=== PATIENT | female | born 1970 | race Caucasian/White ===

== ENCOUNTER 2017-09-28 06:48 | Inpatient (IN) | payer OTHER ==
[2017-09-28] VITALS (43 sets, daily range): BP systolic 93–173; BP diastolic 59–118; PULSE 73–113; RESP 15–41; Ht 154.9 cm; Wt 102.0 kg
[~2017-09-28] VITALS: Ht 154.9 cm; Wt 102.0 kg
[2017-09-28] MEDS ORDERED: ASPIRIN 81 MG TAB PO STA (06:51)
[2017-09-28] MEDS ORDERED: ENALAPRILAT 1.25 MG INJ IV STA (06:51)
[2017-09-28] MEDS ORDERED: HEPARIN 25000 UNITS/250 ML 250 ML IV STA (06:51)
[2017-09-28] MEDS ORDERED: HEPARIN 1000 UNITS/ML 10 ML INJ IV STA ×2 (06:51→07:02)
[2017-09-28] MEDS ORDERED: ASPIRIN 81 MG TAB ONE (07:00)
[2017-09-28] MEDS ORDERED: AMIODARONE 150 MG INJ ONE (07:00)
[2017-09-28] MEDS ORDERED: ALPRAZOLAM 0.25 MG TAB PO ONE (07:00)
[2017-09-28] MEDS ORDERED: NITROGLYCERIN (SL) 0.4 MG TAB ONE (07:00)
[2017-09-28] MEDS ORDERED: AMIODARONE 900 MG INJ ONE (07:00)
[2017-09-28] MEDS: NITROGLYCERIN (SL) 0.4 MG TAB SL PRN ×2 (07:00→07:09)
[2017-09-28] MEDS ORDERED: HEPARIN 5,000 UNIT/0.5 ML VIAL ONE (07:00)
[2017-09-28] MEDS ORDERED: TICAGRELOR 90 MG TABLET PO ONE (07:00)
[2017-09-28] MEDS ORDERED: LIDOCAINE 100 MG SYRINGE ONE (07:00)
[2017-09-28] MEDS ORDERED: MAGNESIUM SULFATE 1 GM/100 ML D5W IVPB ONE (07:00)
[2017-09-28] MEDS ORDERED: FER325 PO (07:03)
[2017-09-28 07:04] LABS: ABNORMAL IP MESSAGE 1; BASOPHILS % 0.2 % (0.0-2.0); EOSINOPHILS # 0.3 10^3/ul (0.0-0.5); EOSINOPHILS % 2.2 % (0.0-7.0); HEMATOCRIT 35.8 % (37.0-47.0); HEMOGLOBIN 10.5 g/dl (12.0-16.0); LYMPHOCYTES # 2.1 10^3/ul (0.8-2.9); LYMPHOCYTES % 13.9 % (15.0-51.0); MEAN CORPUSCULAR HEMOGLOBIN 21.8 pg (29.0-33.0); MEAN CORPUSCULAR HGB CONC 29.3 g/dl (32.0-37.0); MEAN CORPUSCULAR VOLUME 74.4 fl (82.0-101.0); MEAN PLATELET VOLUME 9.7 fl (7.4-10.4); MONOCYTE # 0.5 10^3/ul (0.3-0.9); MONOCYTES % 3.1 % (0.0-11.0); NEUTROPHILS % 80.2 % (39.0-77.0); PLATELET COUNT 480 10^3/UL (140-415); RED BLOOD COUNT 4.81 10^6/ul (4.20-5.40); RED CELL DISTRIBUTION WIDTH 29.2 % (11.5-14.5); WHITE BLOOD COUNT 14.9 10^3/ul (4.8-10.8)
[2017-09-28 07:05] LABS: POSITIVE DIFF @See below
--- NOTE | 2017-09-28 07:13 | RADRPT ---
PROCEDURE: XR Chest. CLINICAL INDICATION: Chest pain and myocardial infarct TECHNIQUE: AP Portable chest. COMPARISON: None available FINDINGS: Multiple EKG leads is superimposed over the chest wall. The soft tissues and osseous structures are remarkable for mild thoracic spondylosis. No focal infiltrates, masses or effusions are present. Mil d cardiomegaly is present with vascular calcifications of the thoracic aorta. No pneumothorax is pre sent. IMPRESSION: 1. No radiographic evidence for acute cardiopulmonary disease 2. Mild cardiomegaly and atherosclerotic vascular disease 3. Mild thoracic spondylosis RPTAT: HDC .Trang Bustos MD, MD Date Time Electronically viewed and signed by .Trang Bustos MD, on 09/28/2017 07:12 .C/
[2017-09-28] MEDS ORDERED: IODIXANOL LOCM 100 ML BTL ONE ×3 (07:17→13:07)
[2017-09-28] MEDS ORDERED: LIDOCAINE 1% (MDV) 20 ML INJ ONE ×2 (07:17→11:29)
[2017-09-28] MEDS ORDERED: HEPARIN 1000 UNITS/ML 10 ML INJ ONE (07:17)
[2017-09-28] MEDS ORDERED: NITROGLYCERIN (IC) 100 MCG/ML INJ ONE ×2 (07:17→12:04)
[2017-09-28] MEDS ORDERED: VERAPAMIL 5 MG INJ ONE (07:17)
[2017-09-28] MEDS ORDERED: MIDAZOLAM 1 MG/ML 2 ML INJ ONE (07:17)
[2017-09-28] MEDS ORDERED: FENTAnyl 50 MCG/ML VIAL ONE (07:17)
[2017-09-28 07:20] LABS: PROTIME 13.2 Sec (12.2-14.2)
[2017-09-28 07:23] LABS: ALBUMIN 4.5 g/dl (3.3-4.9); ALBUMIN/GLOBULIN RATIO 1.28; BILIRUBIN,INDIRECT 0.6 mg/dl (0-1.1); BILIRUBIN,TOTAL 0.6 mg/dl (0.2-1.3); CHOL/HDL RATIO 7.4 RATIO
--- NOTE | 2017-09-28 07:24 | ERD ---
ER Documentation Chief Complaint Chief Complaint pt bib RA 390 with c/o abd pain at 0200 , + STEMI in field HPI 47-year-old woman brought in by EMS from home for complaints of epigastric and chest discomfort radiating to the back beginning this morning and keeping her awake. She states she has never felt like this, she has had some nausea but no vomiting. She denies recent fevers or chills, no chest pain or shortness of breath, no headache or blurry vision. EMS performed EKG at the scene and there was suspicion for STEMI, they administered aspirin nitroglycerin with some relief and transported her here without further complications. Patient denies history of AK. ROS All systems reviewed and are negative except as per history of present illness. Medications Home Meds Reported Medications Ferrous Sulfate* (Ferrous Sulfate*) 325 Mg Tabec, 325 MG PO DAILY, TAB 09/28/17 Allergies Allergies: Coded Allergies: No Known Allergy (Unverified , 09/28/17) PMhx/Soc Anemia, obesity History of Surgery: No Hx Alcohol Use: No Hx Substance Use: No Hx Tobacco Use: No Smoking Status: Never smoker FmHx Mom had first AK at the age of 54 Family History: No diabetes Physical Exam Vitals Vital Signs Date Time Temp Pulse Resp B/P Pulse Ox O2 Delivery O2 Flow Rate FiO2 09/28/17 07:05 80 20 132/86 99 09/28/17 06:50 Nasal Cannula 2 09/28/17 06:50 98.3 76 20 116/88 99 Physical Exam GENERAL: Well-developed, well-nourished, well-hydrated, in no apparent distress , anxious HEENT: Moist mucous membranes, pink conjunctiva, no cervical spine tenderness or step-off deformities, no goiter, no jaundice or icterus, extraocular movements intact without pain. No submandibular induration, and no pharyngeal erythema NEURO: Alert and oriented 3, cranial nerves II through XII intact bilaterally, pupils equal round reactive to light, no focal deficits or facial asymmetry, sensation intact distally Strength 5/5 in upper and lower extremities bilaterally CARDIAC: Regular rate and rhythm, no murmurs rubs or gallops LUNGS: Clear bilaterally no wheezing crackles or stridor ABDOMEN: Soft nontender, no guarding, no rigidity, no rebound, no psoas sign no obturator sign. Normoactive bowel sounds SKIN: Warm and dry to touch, no abrasions, contusions, or hematomas, no lacerations, no ecchymosis, no target lesions, and without ulcers EXTREMITIES: No clubbing cyanosis or edema, calves are bilaterally symmetrical, no Homans sign, no popliteal cord sign. Distal pulses equal and bilateral PSYCH: Anxious Result Diagram: 09/28/17 1046 09/28/17 1046 Results 24 hrs Laboratory Tests Test 09/28/17 06:54 White Blood Count 14.910^3/ul Red Blood Count 4.8110^6/ul Hemoglobin 10.5g/dl Hematocrit 35.8% Mean Corpuscular Volume 74.4fl Mean Corpuscular Hemoglobin 21.8pg Mean Corpuscular Hemoglobin Concent 29.3g/dl Red Cell Distribution Width 29.2% Platelet Count 37774^3/UL Mean Platelet Volume 9.7fl Neutrophils % 80.2% Lymphocytes % 13.9% Monocytes % 3.1% Eosinophils % 2.2% Basophils % 0.2% Nucleated Red Blood Cells % 0.0/100WBC Neutrophils # 12.010^3/ul Lymphocytes # 2.110^3/ul Monocytes # 0.510^3/ul Eosinophils # 0.310^3/ul Basophils # 0.010^3/ul Nucleated Red Blood Cells # 0.010^3/ul Prothrombin Time 13.2Sec Prothrombin Time Ratio 1.0 INR International Normalized Ratio 1.00 Sodium Level 141mmol/L Potassium Level 3.9mmol/L Chloride Level 104mmol/L Carbon Dioxide Level 20mmol/L Anion Gap 21 Blood Urea Nitrogen 12mg/dl Creatinine 0.78mg/dl Glucose Level 227mg/dl Calcium Level 9.1mg/dl Total Bilirubin 0.6mg/dl Direct Bilirubin 0.00mg/dl Indirect Bilirubin 0.6mg/dl Aspartate Amino Transf (AST/SGOT) 34IU/L Alanine Aminotransferase (ALT/SGPT) 49IU/L Alkaline Phosphatase 96IU/L Troponin I 0.107ng/ml B-Type Natriuretic Peptide 40PG/ML Total Protein 8.0g/dl Albumin 4.5g/dl Globulin 3.50g/dl Albumin/Globulin Ratio 1.28 Triglycerides Level 205mg/dl Cholesterol Level 209mg/dl LDL Cholesterol, Calculated 140mg/dl HDL Cholesterol 28mg/dl Cholesterol/HDL Ratio 7.4RATIO Lipase 41U/L Hepatitis B Surface Antigen NEGATIVE Hepatitis C Antibody Pending HIV (1&2) Antibody Pending Current Medications Medications (Trade) Dose Ordered Sig/Ne Route PRN Reason Start Time Stop Time Status Last Admin Dose Admin Aspirin (Aspirin) 162 mg ONCE STAT PO 09/28/17 06:51 09/28/17 06:55 DC 09/28/17 06:51 Enalaprilat (Vasotec Iv) 1.25 mg ONCE STAT IV 09/28/17 06:51 09/28/17 06:55 DC Nitroglycerin (Nitroglycerin (Sl Tab) 0.4 Mg) 1 tab Q5M UP TO 3 DOSES PRN SL CHEST PAIN 09/28/17 07:00 09/28/17 07:00 Heparin Sodium (Porcine) 1000 unit 1,000 unit ONCE STAT IV 09/28/17 06:51 09/28/17 07:04 DC Heparin Sodium (Porcine) (Heparin 44954 Units/250 ml) 250 ml @ 0 mls/hr ONCE STAT IV 09/28/17 06:51 09/28/17 06:55 DC Ticagrelor (Brilinta) 180 mg ONCE ONCE PO 09/28/17 07:00 09/28/17 07:01 DC 09/28/17 07:00 Alprazolam (Xanax) 0.5 mg ONCE ONCE PO 09/28/17 07:00 09/28/17 07:01 DC 09/28/17 09:50 Heparin Sodium (Porcine) (Heparin (1000 Units/ml)) 5,000 unit ONCE STAT IV 09/28/17 07:02 09/28/17 07:04 DC 09/28/17 07:02 Procedures/[facility] IV line was established patient was placed on cardiac exercise physiologist rhythm strip revealed a sinus rhythm at about 80 bpm with upright P and T waves. Patient was afebrile EKG performed, read by me revealed a normal sinus rhythm at 77 bpm, normal axis , intraventricular conduction delay QRS 100 ms, inferolateral ST elevations including limb leads II, III, aVF as well as precordial leads V3 through V6. There are ST depressions in leads I, aVL, and V2. Concerning for inferior versus left circumflex occlusion. Chest X-ray 1V Interpreted by me: Soft Tissue: No acute abnormalities Bones: No acute abnormalities Mediastinum/Cardiac Silhouette/Lungs: No acute abnormalities Patient had concerning symptoms and EKG findings so was treated here with aspirin 162 mg p.o. for cardioprotective measures, nitroglycerin 0.4 mg sublingual 1, ticagrelor 180 mg p.o. 1, as well as heparin bolus and drip. Patient did not require enalapril as her blood pressure was within normal limits , although I did administer alprazolam 0.5 mg p.o. 1 for anxiety. I spoke to tax appraiser paint line production supervisor Dr. Garcia regarding the patient' s presentation, symptomatology, and EKG findings he agreed with the ED management and agreed to take the patient to the Internal Communications Specialist for emergent PCI. Cardiac critical Care: Time: 40 minutes, this was time separate from other billable procedures. Treatments/Evaluations: Close monitoring and treatment of unstable vital signs, cardiorespiratory, and neurologic status, while maintaining tight balance of fluid, respiratory, and cardiac interventions. CBC and electrolytes are normal, liver function tests are normal, and the initial troponin was negative. Patient was taken to the Internal Communications Specialist and admitted to hospitalist team, who I spoke to. Prior to transfer her vital signs were normal, oxygen saturation 98%, patient appeared comfortable. Departure Diagnosis: Primary Impression: ST elevation myocardial infarction (STEMI) Involved coronary artery: other inferior wall coronary artery Qualified Code : I21.19 - ST elevation myocardial infarction (STEMI) involving other coronary artery of inferior wall Condition: Serious RENETTA WALTER MD Sep 28, 2017 07:24
[2017-09-28 07:31] LABS: CALCIUM 9.1 mg/dl (8.4-10.2); CREATININE 0.78 mg/dl (0.44-1.00); POTASSIUM 3.9 mmol/L (3.5-5.1)
[2017-09-28 07:34] LABS: TROPONIN-I 0.107 ng/ml (0.00-0.12)
[2017-09-28] MEDS ORDERED: niCARdipine 25 MG INJ ONE ×2 (08:09→12:04)
[2017-09-28] MEDS ORDERED: SOD CHLORIDE 0.45% 1,000 ML IV SCH (08:46)
[2017-09-28] MEDS ORDERED: AL HYDROX/MG HYDROX/SIMETH 30 ML CUP PO PRN (09:00)
[2017-09-28] MEDS ORDERED: ACETAMINOPHEN 325 MG TAB PO PRN ×2 (09:00→09:30)
[2017-09-28] MEDS ORDERED: ONDANSETRON 4 MG INJ IV PRN ×2 (09:00→09:30)
--- NOTE | 2017-09-28 09:06 | OPR ---
Date/Time of Note Date/Time of Note DATE: 09/28/17 TIME: 08:49 Operative Report Procedure Date: Sep 28, [address] elevation myocardial infarction Postoperative Diagnosis Obstructive coronary artery disease Operation/Procedure Performed Left heart catheterization Right and left coronary angiogram Interpretation and supervision of right and left coronary angiogram Left ventricular pressure measurements PCI of the mid RCA with the placement of a 2.5 x 20 mm rebel bare-metal stent and then proximal to that in overlapping fashion 2.75 x 12 mm rebel bare-metal stent Right radial artery and right femoral artery approach ACLS protocol with defibrillation and CPR Conscious sedation Surgeon see signature line Assisted Living Administrator None Anesthesia Type: other (Conscious sedation) Estimated Blood Loss: minimal Transfusion none Specimen None Grafts/Implants Bare-metal stents as mentioned above Complications none Pt Condition Post Procedure: guarded Procedure Description Findings Hemodynamics Aortic pressure 147/87 Left ventricular pressure 156/11 with EDP of 24 Coronary anatomy Left main is a large caliber vessel with no significant disease Circumflex is a medium caliber vessel, in the mid vessel there is a 30% stenosis. OM 3 is a small caliber vessel with ostial 60% stenosis, OM 4 is a medium caliber vessel with ostial 50% stenosis. LAD is a medium to large caliber vessel with a proximal to mid 80% stenosis, at the bifurcation of the second medium caliber diagonal there is an 80% stenosis in the LAD and 90% ostial stenosis in the second diagonal. 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 Initially right radial access was obtained using ultrasound guidance. A 5/6 Japanese sheath was used the right radial artery. A 5 Japanese JL 3.5 diagnostic catheter was used to engage the left main and angiogram was performed. Number next switching out for a JR4 guide catheter and patient with severe spasming in the mid right arm inhibiting advancement of her catheter. At that time, patient with ventricular fibrillation and loss of consciousness. Patient was shocked at 200 J and CPR was performed. Patient came to within a few seconds. IV amiodarone bolus was given. We next which the right femoral artery access using micropuncture initially and then a 6 Japanese sheath was placed. 6 Japanese JR4 guide was used to engage the RCA which demonstrated 100% mid occlusion. Angiomax was used for anticoagulation. We next crossed the lesion with a run through wire and flow was regained. We next performed balloon angioplasty. Patient once again ventricular fibrillation requiring 2 defibrillations with 200 J. Patient regained consciousness within a few seconds. Patient was given IV lidocaine. 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 Furthermore, given the LAD stenosis and location, coronary artery bypass grafting would be the preferred option. Given the above, and with angioplasty by itself, there was recurrent recoil of the RCA, we opted to proceed with bare-metal stenting of the RCA. A 2.5 x 20 mm bare-metal stent was used in the mid to distal segment and then proximal to that in overlapping fashion, a 2.75 x 12 mm bare-metal stent was used. The stents were post dilated with the stent delivery system balloon. There was an excellent angiographic result with TAVIA-3 flow with no evidence of dissection. Patient was hemodynamically stable by and the procedure , chest pain-free, fully coherent and following commands. We next crossed into the left ventricle and pressure measurements were obtained as well as pullback. All catheters and wires removed. The left femoral artery sheath was sutured in place with plans of removal once appropriate. Recommendations Dual antiplatelet therapy for minimum of 1 month, aggressive risk factor management. Findings and plan of care discussed with the patient. Mikal Garcia DO Sep 28, 2017 09:06
--- NOTE | 2017-09-28 09:10 | CONS ---
Date/Time of Note Date/Time of Note DATE: 09/28/17 TIME: 09:07 Assessment/Plan Assessment/Plan Additional Assessment/Plan Inferior ST elevation [place] CAD status post 2 bare-metal stents to the RCA Ventricular fibrillation status post defibrillation Diabetes Hypertension Obesity -Patient status post cardiac catheterization, please refer to cath report the patient with 100% occlusion of the RCA status post 2 bare-metal stents. Patient with ventricular fibrillation during the procedure requiring defibrillation and CPR. Patient also with evidence of severe stenosis in the LAD and diagonal as well as evidence of a coronary fistula. Will continue dual antiplatelet therapy, high-dose statin, blood pressure control, beta-blockers heart rate and blood pressure permits, echocardiogram, ICU monitoring. Consultation Date/Type/Reason Admit Date/Time Type of Consultation: cv Reason for Consultation ST elevation [place] Hx of Present Illness This is a 47-year-old female with past medical history of diabetes, hypertension who presents with waxing and waning chest discomfort with activity over the past 2-3 weeks but worsening this morning with chest pain at rest. This is associated with back pain and shoulder pain. There was also shortness of breath and nausea. Patient found to have ST elevation [place] and cardiology consult was requested for this reason. Patient prior to cardiac catheterization , chest pain of 3 out of 10 in nature. Patient was given antiplatelet therapy, heparin. 12 point review of systems was performed with all pertinent positives and negatives mentioned above and all else is negative Past Medical History Medical History: diabetes, hypertension Family History Significant Family History: heart disease Social History Alcohol Use: none Smoking Status: Never smoker Exam/Review of Systems Vital Signs Vitals Vital Signs Date Time Temp Pulse Resp B/P Pulse Ox O2 Delivery O2 Flow Rate FiO2 09/28/17 07:05 80 20 132/86 99 09/28/17 06:50 Nasal Cannula 2 09/28/17 06:50 98.3 Exam In mild discomfort Constitutional: alert, obese, oriented Head: normocephalic Respiratory: other (Coarse breath sounds bilaterally, no wheezing) Cardiovascular: other (S1-S2 heard), regular rate and rhythm, systolic murmur Gastrointestinal: bowel sounds, non-tender, soft Extremities: other (No significant edema) Results Result Diagram: 09/28/17 0654 09/28/17 0654 Results 24 hrs Laboratory Tests Test 09/28/17 06:54 White Blood Count 14.9 H Red Blood Count 4.81 Hemoglobin 10.5 L Hematocrit 35.8 L Mean Corpuscular Volume 74.4 L Mean Corpuscular Hemoglobin 21.8 L Mean Corpuscular Hemoglobin Concent 29.3 L Red Cell Distribution Width 29.2 H Platelet Count 480 H Mean Platelet Volume 9.7 Neutrophils % 80.2 H Lymphocytes % 13.9 L Monocytes % 3.1 Eosinophils % 2.2 Basophils % 0.2 Nucleated Red Blood Cells % 0.0 Neutrophils # 12.0 H Lymphocytes # 2.1 Monocytes # 0.5 Eosinophils # 0.3 Basophils # 0.0 Nucleated Red Blood Cells # 0.0 Prothrombin Time 13.2 Prothrombin Time Ratio 1.0 INR International Normalized Ratio 1.00 Sodium Level 141 Potassium Level 3.9 Chloride Level 104 Carbon Dioxide Level 20 L Anion Gap 21 H Blood Urea Nitrogen 12 Creatinine 0.78 Glucose Level 227 H Calcium Level 9.1 Total Bilirubin 0.6 Direct Bilirubin 0.00 Indirect Bilirubin 0.6 Aspartate Amino Transf (AST/SGOT) 34 Alanine Aminotransferase (ALT/SGPT) 49 Alkaline Phosphatase 96 Troponin I 0.107 B-Type Natriuretic Peptide 40 Total Protein 8.0 Albumin 4.5 Globulin 3.50 H Albumin/Globulin Ratio 1.28 Triglycerides Level 205 H Cholesterol Level 209 H LDL Cholesterol, Calculated 140 HDL Cholesterol 28 L Cholesterol/HDL Ratio 7.4 Lipase 41 Procedures Procedures ECG performed in the emergency room demonstrates inferior ST elevations Mikal Garcia DO Sep 28, 2017 09:10
[2017-09-28] MEDS ORDERED: HYDROCODONE/APAP (5/325) TAB PO PRN ×2 (09:30)
[2017-09-28] MEDS ORDERED: NACL 0.9% 3 ML SYG IV SCH (09:30)
[2017-09-28] MEDS ORDERED: MAGNESIUM HYDROXIDE 30ML CUP PO PRN (09:30)
[2017-09-28] MEDS ORDERED: BISACODYL 10 MG SUPP PR PRN (09:30)
[2017-09-28] MEDS ORDERED: ACETAMINOPHEN 650 MG SUPP PR PRN (09:30)
[2017-09-28] MEDS ORDERED: DOCUSATE SODIUM 100 MG CAP PO PRN (09:30)
[2017-09-28] MEDS ORDERED: morphine 2 MG INJ IV PRN (09:30)
[2017-09-28] MEDS ORDERED: LIDOCAINE 2 GM/D5W 500 ML IV SCH (10:30)
[2017-09-28] MEDS ORDERED: PROPOFOL 100 ML ONE (10:54)
[2017-09-28 10:58] LABS: ABNORMAL IP MESSAGE 1; BASOPHILS % 0.2 % (0.0-2.0); EOSINOPHILS % 0.1 % (0.0-7.0); HEMATOCRIT 35.6 % (37.0-47.0); HEMOGLOBIN 10.4 g/dl (12.0-16.0); LYMPHOCYTES % 5.8 % (15.0-51.0); MEAN CORPUSCULAR HEMOGLOBIN 21.6 pg (29.0-33.0); MEAN CORPUSCULAR HGB CONC 29.2 g/dl (32.0-37.0); MEAN CORPUSCULAR VOLUME 73.9 fl (82.0-101.0); MEAN PLATELET VOLUME 9.7 fl (7.4-10.4); MONOCYTE # 0.4 10^3/ul (0.3-0.9); MONOCYTES % 2.3 % (0.0-11.0); NEUTROPHILS % 90.9 % (39.0-77.0); PLATELET COUNT 467 10^3/UL (140-415); RED BLOOD COUNT 4.82 10^6/ul (4.20-5.40); RED CELL DISTRIBUTION WIDTH 29.2 % (11.5-14.5); WHITE BLOOD COUNT 17.6 10^3/ul (4.8-10.8)
[2017-09-28] MEDS: PROPOFOL 100 ML IV SCH ×2 (11:00→21:48)
[2017-09-28 11:01] LABS: POSITIVE DIFF @See below
[2017-09-28 11:13] LABS: INR 1.31; PROTIME 16.4 Sec (12.2-14.2); PT RATIO 1.3
[2017-09-28 11:14] LABS: PARTIAL THROMBOPLASTIN TIME 43.4 Sec (25.0-35.0)
[2017-09-28 11:21] LABS: ALBUMIN 4.2 g/dl (3.3-4.9); ALBUMIN/GLOBULIN RATIO 1.4; BILIRUBIN,INDIRECT 0.5 mg/dl (0-1.1); BILIRUBIN,TOTAL 0.5 mg/dl (0.2-1.3); CALCIUM 8.3 mg/dl (8.4-10.2); CREATININE 0.65 mg/dl (0.44-1.00); PHOSPHORUS 3.7 mg/dl (2.5-4.9); TOTAL PROTEIN 7.2 g/dl (6.1-8.1)
[2017-09-28 11:29] LABS: CK-MB 34.1 ng/ml (0.0-2.4)
[2017-09-28 11:31] LABS: TROPONIN-I 2.91 ng/ml (0.00-0.12)
--- NOTE | 2017-09-28 11:41 | RADRPT ---
PROCEDURE: XR Chest AP portable CLINICAL INDICATION: Intubation TECHNIQUE: An AP portable radiograph of the chest was submitted. COMPARISON: Study done earlier on the same date FINDINGS: Support Hardware: The patient has been intubated and the tube tip is down the right mainstem bronchu s and should be withdrawn by approximately 6-7 cm. An NG tube has been placed with the tip distal to the gas esophageal junction. Cardiovascular: The mediastinum is displaced leftward and is largely obscured. The the peripheral pu lmonary vasculature is seen on the right appears unremarkable. Lung Mcgovern: There is atelectasis of the left lung. Pleural Spaces: No pneumothorax or pleural effusion is identified. Osseous Structures: The osseous structures appear intact. Soft Tissues: The soft tissues appear generous. IMPRESSION: 1. Endotracheal tube tip down right mainstem bronchus and should be withdrawn by approximately 6-7 cm. 2. NG tube satisfactorily position. 3. Left lung atelectasis. Physician Nestor Date Time Electronically viewed and signed by Physician Nestor on 09/28/2017 11:40 /
--- NOTE | 2017-09-28 11:43 | RADRPT ---
PROCEDURE: XR Chest AP portable CLINICAL INDICATION: Endotracheal tube pulled back TECHNIQUE: An AP portable radiograph of the chest was submitted. COMPARISON: Stated earlier on the same date FINDINGS: Support Hardware: The endotracheal tube is been satisfactorily repositioned with the tip now seen to be approximately 2 cm superior to the ara. The NG tube remains satisfactorily positioned. Cardiovascular: The cardiovascular silhouette appears unremarkable. Lung Mc[place]: There is now mild subsegmental atelectatic change involving the left lower lobe signifi cantly improved from the previous. The right lung remains clear. Pleural Spaces: No pneumothorax or pleural effusion is identified. Osseous Structures: The osseous structures appear intact. Soft Tissues: The soft tissues appear generous. IMPRESSION: 1. The endotracheal tube has been satisfactorily repositioned and the NG tube remains well placed. 2. Significant re-expansion of the left lung with mild subsegmental atelectasis involving the left lower lobe. Physician Nestor Date Time Electronically viewed and signed by Physician Nestor on 09/28/2017 11:42 /
--- NOTE | 2017-09-28 11:48 | HP ---
Date/Time of Note Date/Time of Note DATE: 09/28/17 TIME: 11:41 Assessment/Plan VTE Prophylaxis VTE Prophylaxis Intervention: SCD's Lines/Catheters IV Catheter Type (from [facility]): Saline Lock Assessment/Plan Chief Complaint/Hosp Course Assessment and plan 1. Non-ST elevated myocardial infarction (inferiorly). Patient is status post PCI with bare-metal stent placed to RCA. Continue antiplatelet therapy. Inspector [employer] following. 2. V. fib cardiac arrest. Patient did suffer from this episode status post PCI. Patient again for possible intervention medical laboratory scientist. Continue with acetaldehyde converter operator or conditions. 3. Suspect diabetes. Patient reportedly has a history of diabetes. We will follow-up on A1c. Start insulin regimen for now considering patient's elevated glucose level. 4. Suspect hypertension. Will provide with antihypertensives and adjust needed. 5. Obesity. Weight reduction to be advised 6. Dyslipidemia. To be started on statin medication Critical CARE time: Greater than 50 minutes Discussed plan of care with Dr. Anglin Problems: HPI/ROS Admit Date/Time Admit Date/Time Hx of Present Illness This is a 47-year-old female morbidly obese was brought to [facility] due to reports of chest pain. Patient reportedly has no significant past medical history. History obtained from patient's significant other as patient intubated at this time. According to report patient was in her normal state of health however this morning started to complain of abdominal pain that radiated to her back. She had associated nausea and vomiting. She did tell her significant other to call ambulance and she was brought to [facility] where she was found to have inferior myocardial infarction. She did have consultation by acetaldehyde converter operator and did undergo left heart catheterization with placement of bare-metal stent 2 to RCA. Of note during procedure she was noted to have episodes of ventricular fibrillation and was shocked. She did respond well and was brought to the ICU. While in ICU reportedly she was more alert and oriented however did fall back into ventricular fibrillation. She did have ACLS provided and was intubated. She is again being transferred to medical laboratory scientist at present for further intervention. On labs she was noted to have some leukocytosis with white count is high 17.6. She was noted with hypochromic microcytic anemia as well. Lactic acid 1.6 and troponin I is 2.9. She was also noted with an elevated blood glucose as well as elevated lipid profile. Chest x-ray showing no evidence of acute cardiopulmonary disease. We will evaluate her for the aformentiond issues. ROS 12 point review of systems obtained and entirely negative except that mentioned in the history of present illness PMH/Family/Social Past Medical History Medical History: diabetes, hypertension Social History Alcohol Use: none Smoking Status: Never smoker Drug Use: none Exam/Review of Systems Vital Signs Vitals Vital Signs Date Time Temp Pulse Resp B/P Pulse Ox O2 Delivery O2 Flow Rate FiO2 09/28/17 10:36 100 09/28/17 07:05 20 132/86 99 09/28/17 06:50 Nasal Cannula 2 09/28/17 06:50 98.3 Exam Constitutional: other (Intubated and sedated) Head: normocephalic Eyes: nl conjunctiva Neck: non-tender, supple Respiratory: diminished breath sounds Cardiovascular: irregular rhythm Gastrointestinal: other (Obese hypoactive) Musculoskeletal: No swelling Neurological: other (Intubated at this time) Labs Result Diagram: 09/28/17 1046 09/28/17 1046 Medications Medications Current Medications Aspirin (Halfprin) 81 mg DAILY PO ; Start 09/29/17 at 09:00 Ticagrelor (Brilinta) 90 mg BID PO ; Start 09/28/17 at 21:00 Metoprolol Tartrate (Lopressor) 25 mg BID PO ; Start 09/28/17 at 21:00 Acetaminophen (Tylenol Tab) 650 mg Q4H PRN PO NON-CARDIAC PAIN LEVEL 1-3; Start 09/28/17 at 09:00 Al Hydrox/Mg Hydrox/Simethicone (Mag-Al Plus) 30 ml Q4H PRN PO GASTROINTESTINAL UPSET; Start 09/28/17 at 09:00 Ondansetron HCl (Zofran Inj) 4 mg Q4H PRN IV NAUSEA AND/OR VOMITING; Start 09/28/17 at 09:00 Atorvastatin Calcium 80 mg 80 mg DAILY@21 PO ; Start 09/28/17 at 21:00 Sodium Chloride (1/2 NS) 1,000 ml @ 75 mls/hr [id number] IV Last administered on 09/28/17t 09:42; Admin Dose 75 MLS/HR; Start 09/28/17 at 08:46; Stop 09/28/17 at 22:05 Ferrous Sulfate (Ferrous Sulfate (Ec)) 325 mg DAILY PO ; Start 09/29/17 at 09:00 Ondansetron HCl (Zofran Inj) 4 mg Q6H PRN IV NAUSEA AND/OR VOMITING; Start 09/28/17 at 09:30 Acetaminophen (Tylenol Tab) 650 mg Q6H PRN PO PAIN LEVEL 1-3 OR FEVER; Start 09/28/17 at 09:30 Acetaminophen (Tylenol Supp) 650 mg Q6H PRN CA PAIN LEVEL 1-3 OR FEVER; Start 09/28/17 at 09:30 Acetaminophen/ Hydrocodone Bitart ([place] (5/325)) 1 tab Q6H PRN PO MODERATE PAIN LEVEL 4-6; Start 09/28/17 at 09:30 Acetaminophen/ Hydrocodone Bitart ([place] (5/325)) 2 tab Q6H PRN PO SEVERE PAIN LEVEL 7-10; Start 09/28/17 at 09:30 Morphine Sulfate (morphine) 2 mg Q4H PRN IV SEVERE PAIN LEVEL 7-10; Start 09/28 at 09:30 Docusate Sodium (Colace) 100 mg Q12H PRN PO CONSTIPATION; Start 09/28/17 at 09: 30 Magnesium Hydroxide (Milk Of Mag) 30 ml DAILY PRN PO CONSTIPATION; Start at 09:30 Bisacodyl (Dulcolax Supp) 10 mg DAILY PRN CA CONSTIPATION; Start 09/28/17 at 09 :30 Famotidine 20 mg 20 mg DAILY@06 IV ; Start 09/29/17 at 06:00 Lidocaine HCl/ Dextrose (Lidocaine 2 Gm/ D5W) 500 ml @ 15 mls/hr Q24H IV ; Start 09/28/17 at 10:30 BERTHA LEBLANC Sep 28, 2017 11:48
[2017-09-28] MEDS ORDERED: NORepinephrine 8MG/250 ML (PMX 250 ML ONE (12:12)
[2017-09-28] MEDS ORDERED: BIVALIRUDIN 250MG /NS 50 ML 100 ML IVPB ONE (12:27)
[2017-09-28] MEDS ORDERED: EPTIFIBATIDE 20 ML ONE (12:28)
[2017-09-28] MEDS ORDERED: EPTIFIBATIDE 100 ML IV ONE (12:28)
[2017-09-28] MEDS ORDERED: PROPOFOL 100 ML IV SCH (13:30)
[2017-09-28 13:37] LABS: AADO2 Arterial 165.4 mmHg (7.0-24.0); Arterial Base Excess -7.5 mmol/L (-3.0-3); Arterial COHb 0.2 % (0.0-3.0); Arterial Fraction of Oxyhgb 99.2 % (93.0-99.0); Arterial HCO3 17.2 mmol/L (22.0-26.0); Arterial MetHb 0.3 % (0.0-1.5); Arterial Total Hemglobin 10.6 g/dl (12.0-18.0); MODE VENT - AC
--- NOTE | 2017-09-28 13:45 | OPR ---
Date/Time of Note Date/Time of Note DATE: 09/28/17 TIME: 13:42 Operative Report Procedure Date: Sep 28, 2017 Preoperative Diagnosis Myocardial infarction Postoperative Diagnosis Myocardial infarction Acute stent thrombosis Operation/Procedure Performed Left heart catheterization Right and left coronary angiogram Interpretation and supervision of right left coronary angiogram PCI of the RCA with manual thrombectomy, intravascular ultrasound, balloon angioplasty, stenting the proximal segment of the previous stent with a rebel bare-metal 3 x 12 mm stent, distal aspect of the previous stents with a Rebel 2.5 x 12 mm bare-metal stent Right femoral artery access Right femoral vein access Surgeon see signature line Puppy Walker None Anesthesia Type: general Estimated Blood Loss: minimal Transfusion none Specimen None Grafts/Implants none Complications none Procedure Description Findings Coronary anatomy Left main is a large caliber vessel with no significant disease Circumflex is a medium caliber vessel, in the mid vessel there is a 30% stenosis. OM 3 is a small caliber vessel with ostial 60% stenosis, OM 4 is a medium caliber vessel with ostial 50% stenosis. LAD is a medium to large caliber vessel with a proximal to mid 80% stenosis, at the bifurcation of the second medium caliber diagonal there is an 80% stenosis in the LAD and 90% ostial stenosis in the second diagonal. 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 Approximate 1 hour afterwards, patient with ventricular fibrillation requiring multiple ICD shocks and medications. ECG demonstrated ST elevation [place] in inferior leads. Patient was brought to the cardiac High School Social [employer] Teacher. Patient was prepped and draped as per protocol. The previous 6 [place] sheath was exchanged out for a new sheath in the femoral artery. We next put a 5 [place] sheath in the right femoral vein. A 6 [place] JR4 guide was used to engage the RCA which demonstrated 100% occlusion at the proximal aspect of the previous stent with thrombus there. Lesion was crossed with a run through wire. Manual thrombectomy was performed 2 runs. We next performed progressive balloon angioplasty throughout the previous stents initially with compliant balloons and then up to a 2.75 noncompliant balloon. We next performed intravascular ultrasound. This demonstrated the distal aspect of the stent was in an area of plaque but this was nonobstructed. In the proximal aspect of the previous placed stent, there appeared to be either thrombus versus possible dissection. We next used a 3.0 noncompliant balloon throughout the previous placed stents. There is still an area of haziness seen in the proximal aspect of the previous stent. This was covered with a 3.0 x 12 mm bare -metal stent. This was postdilated with a 3.0 noncompliant balloon. There was no further haziness seen in the proximal aspect. Given the etiology of our patient stent thrombosis is unclear, and patient with plaque noted at the distal aspect of the previous placed stent, we opted to cover this region as well. We next used a 2.5 x 12 mm bare-metal stent in this region. This region was postdilated with a 2.75 noncompliant balloon. There was an excellent angiographic result with TAVIA-3 flow with no evidence of dissection. We next used a JL 3.5 diagnostic catheter to engage the left main to confirm there was no changes to the previous lesions. Of note, after flow was returned in the RCA after balloon angioplasty, I did contact our CT surgery colleague Dr. Moon. Given patient with lesions in the left system which will likely require CT surgery, we discussed the option of proceeding directly. Given patient acute KS and with recent arrhythmias prior to procedure, he felt the risk of proceeding with CT surgery emergently would be significant. His recommendations were to regain flow if possible via PTCA and if unsuccessful, would consider CT surgery at that time. Recommendations Continue dual antiplatelet therapy, Integrilin, ICU care Mikal Garcia DO Sep 28, 2017 13:45
[2017-09-28] MEDS ORDERED: BIVALIRUDIN 250MG /NS 50 ML 50 ML IVPB ONE (13:50)
--- NOTE | 2017-09-28 13:50 | QN ---
Documentation Comment EM consultation note for intubation status post defibrillation. Endotracheal Intubation by me: Pre assessment performed. Patient received etomidate 20 mg IV 1 for sedation and succinylcholine 100 mg IV 1 for paralysis Pre-oxygenation performed with 100% oxygen RSI: Performed w/o complication or hypoxic events. Medications as ordered. Blade: Mac 4 ET Tube: 7.5 cm Depth: 25 cm at the lip Intubation confirmed by colorimetric CO2, equal breath sounds, quiet over the stomach. Chest X-ray 1V Interpreted by me: 3 cm above the ara ET tube. Normal soft tissue, No pneumothorax. Cardiomegaly. RENETTA WALTER MD Sep 28, 2017 13:50
--- NOTE | 2017-09-28 14:08 | EN ---
Date/Time of Note Date/Time of Note DATE: 09/28/17 TIME: 14:02 Event Note Cardiology Cardiology Event Note Patient status post cardiac catheterization today. Approximately one hour afterwards, patient with ventricular fibrillation. ACLS protocol including defibrillation. Patient back to sinus rhythm. Denied chest pain but ECG demonstrated inferior ST elevations. Patient with multiple episodes of ventricular fibrillation and then ventricular tachycardia requiring defibrillation, IV amiodarone, IV lidocaine. Given the recurrent episodes, and concern for airway protection, patient was intubated by our emergency room physician and put on a propofol drip. Heart rate stabilized. Blood pressure remained stable. Initially was issues of hypoxia after intubation but this appeared secondary to the ET tube being in the right main bronchus and this was pulled back and repeat x-ray was satisfactory. Given patient with ST elevations , we opted to proceed with cardiac catheterization. Initially there was a previous patient in the [facility] which was an ST elevation [place] patient. Given our patient was unstable for transfer to another facility, and discussion with staff, the time it would take to transfer to another facility, would likely be more than the amount of time until our [facility] would be ready for patient. I did stay with the patient throughout this entire time including the transport to the [facility]. Please refer to code sheet for medications and procedures performed. Mikal Garcia DO Sep 28, 2017 14:08
[2017-09-28 14:29] LABS: ABNORMAL IP MESSAGE 1; BASOPHILS % 0.2 % (0.0-2.0); HEMATOCRIT 32.6 % (37.0-47.0); HEMOGLOBIN 9.7 g/dl (12.0-16.0); LYMPHOCYTES # 0.7 10^3/ul (0.8-2.9); MEAN CORPUSCULAR HGB CONC 29.8 g/dl (32.0-37.0); MEAN CORPUSCULAR VOLUME 73.9 fl (82.0-101.0); MEAN PLATELET VOLUME 9.9 fl (7.4-10.4); MONOCYTE # 0.6 10^3/ul (0.3-0.9); MONOCYTES % 2.6 % (0.0-11.0); NEUTROPHIL # 21.1 10^3/ul (1.6-7.5); NEUTROPHILS % 93.6 % (39.0-77.0); PLATELET COUNT 478 10^3/UL (140-415); RED BLOOD COUNT 4.41 10^6/ul (4.20-5.40); RED CELL DISTRIBUTION WIDTH 28.8 % (11.5-14.5); WHITE BLOOD COUNT 22.5 10^3/ul (4.8-10.8)
[2017-09-28] MEDS ORDERED: NORepinephrine 8MG/250 ML (PMX 250 ML IV SCH ×2 (14:30→15:00)
[2017-09-28] MEDS ORDERED: EPTIFIBATIDE 100 ML IV SCH (14:30)
[2017-09-28 14:58] LABS: CK-MB 91.1 ng/ml (0.0-2.4)
[2017-09-28 15:00] LABS: TROPONIN-I 45.5 ng/ml (0.00-0.12)
--- NOTE | 2017-09-28 15:00 | RADRPT ---
Echocardiogram Report Patient Name: LIAM LAY Gender: Female Date: 1970 Study Date: 28-Sep-2017 China Painter: Terrance Galaviz RDCS Location: 114 Height(Cm): 155 Weight(Kg): 103 BSA: 2.10 Ref. Physician: MIKAL GARCIA Quality: Adequate Procedures: Transthoracic echocardiogram with complete 2D, M-Mode, and doppler examination. Indications: mi, as/mr. 2D/M Mode Doppler Measurement Value Normal Ranges Measurement Value Normal Ranges LVIDd 2D 4.8 3.5 - 5.6 cm AV Mean PG 19.0 mmHg LVIDs 2D 2.8 2.1 - 4.1 cm AV Peak Beni 3.2 m/sec LVPWd 2D 1.1 0.6 - 1.1 cm AV Peak PG 42.0 mmHg IVSd 2D 1.1 0.6 - 1.1 cm AV VTI 56.6 cm AoR Diam 2D 2.2 2.0 - 3.7 cm LVOT Mean PG 4.0 mmHg LA Dimen 2D 2.8 2.3 - 4.0 cm LVOT Peak Beni 1.0 m/sec LVOT Peak PG 3.0 mmHg LVOT VTI 21.1 cm MV E Peak Beni 91.7 m/sec MV A Peak Beni 82.5 m/sec TR Peak Beni 2.4 m/sec TR Peak PG 23.0 mmHg RVSP 26.0 mmHg Findings Left Ventricle: Normal left ventricular systolic function. Normal left ventricular cavity size. Mild concentric left ventricular hypertrophy. Ejection fraction is visually estimated at 60 %. Abnormal Diastolic Function. Right Ventricle: Normal right ventricular size. Normal right ventricular systolic function. Left Atrium: The left atrium is normal in size. Right Atrium: The right atrium is normal in size. Mitral Valve: Normal appearance of the mitral valve. Mild mitral annular calcification. Trace mitral regurgitation. Aortic Valve: Mild to moderate aortic stenosis. Aortic cusps appear moderately calcified. No aortic regurgitation. Tricuspid Valve: Normal appearance of the tricuspid valve. Estimated peak PA systolic pressure 26 mmHg. There is mild tricuspid regurgitation. Pulmonic Valve: Pulmonic valve not well visualized. Pericardium: Normal pericardium with no significant pericardial effusion. Aorta: Normal aortic root. IVC: Normal size and normal respiratory collapse consistent with normal right atrial pressure. Conclusions 1.Normal left ventricular systolic function. Normal left ventricular cavity size. Mild concentric left ventricular hypertrophy. Ejection fraction is visually estimated at 60 %. Abnormal Diastolic Function. 2.Normal right ventricular size. Normal right ventricular systolic function. 3.The left atrium is normal in size. 4.The right atrium is normal in size. 5.Mild to moderate aortic stenosis. No aortic regurgitation. 6.Estimated peak PA systolic pressure 26 mmHg. There is mild tricuspid regurgitation. 7.Trace mitral regurgitation. 8.Normal pericardium with no significant pericardial effusion. Electronically Signed By: Mikal Garcia 28-Sep-2017 14:59:12 -0800 Patient Name: LIAM LAY Study Date: 28-Sep-2017 [id number]
[2017-09-28 15:09] LABS: POSITIVE DIFF @See below
[2017-09-28] MEDS: FENTAnyl (DRIP) 1000 mcg/100mL 100 ML IV SCH (15:46)
[2017-09-28] MEDS ORDERED: PANTOPRAZOLE 40 MG INJ ONE (15:55)
[2017-09-28] MEDS ORDERED: PANTOPRAZOLE 40 MG INJ IV ONE (16:00)
[2017-09-28 16:27] LABS: ANISOCYTOSIS 1+ (0-0); BURR CELLS 1+ (0-0); METAMYELOCYTES %M 1 % (0-0); MONOCYTES % (M) 3 % (0-11); POIKILOCYTOSIS 1+ (0-0)
[2017-09-28] MEDS ORDERED: AMIODARONE 900 MG in DEXTROSE 5% 482 ML IV SCH (17:00)
[2017-09-28] MEDS: PIPER-TAZO 3.375 GM IV (PMX) 50 ML IVPB SCH (17:35)
[2017-09-28] MEDS ORDERED: PRASUGREL HYDROCHLORIDE 10 MG TABLET PO ONE ×2 (18:00→21:00)
[2017-09-28 18:25] LABS: ABNORMAL IP MESSAGE 1; BASOPHILS % 0.2 % (0.0-2.0); EOSINOPHILS % 0.1 % (0.0-7.0); HEMATOCRIT 29.2 % (37.0-47.0); HEMOGLOBIN 8.4 g/dl (12.0-16.0); LYMPHOCYTES # 0.9 10^3/ul (0.8-2.9); LYMPHOCYTES % 6.7 % (15.0-51.0); MEAN CORPUSCULAR HEMOGLOBIN 21.1 pg (29.0-33.0); MEAN CORPUSCULAR HGB CONC 28.8 g/dl (32.0-37.0); MEAN CORPUSCULAR VOLUME 73.2 fl (82.0-101.0); MEAN PLATELET VOLUME 9.7 fl (7.4-10.4); MONOCYTE # 0.6 10^3/ul (0.3-0.9); MONOCYTES % 4.4 % (0.0-11.0); NEUTROPHIL # 11.6 10^3/ul (1.6-7.5); NEUTROPHILS % 88.1 % (39.0-77.0); PLATELET COUNT 355 10^3/UL (140-415); RED BLOOD COUNT 3.99 10^6/ul (4.20-5.40); RED CELL DISTRIBUTION WIDTH 29.1 % (11.5-14.5); WHITE BLOOD COUNT 13.2 10^3/ul (4.8-10.8)
[2017-09-28 18:27] LABS: POSITIVE DIFF @See below
[2017-09-28 19:07] LABS: TROPONIN-I 61.8 ng/ml (0.00-0.12)
--- NOTE | 2017-09-28 20:29 | CONS ---
DATE OF ADMISSION: 09/28/2017 DATE OF CONSULTATION: TYPE OF CONSULTATION: Pulmonary. REASON FOR CONSULTATION: Ventilator management. Thank you, Dr. Anglin, for this consultation. HISTORY OF PRESENT ILLNESS: This is a 47-year-old lady, who was brought into [facility], who was in her usual state of health yesterday. This morning, she experienced abdominal marisel n which radiated through to the back and then had associated nausea and vomiting. Upon evaluation o f EMS, she was found to have acute inferior myocardial infarction. The patient was taken to cardiac geophysical laboratory supervisor emergently following difficult endotracheal intubation and found to have RCA occlusion, un derwent stent placement. Following transfer back to the intensive care unit, she developed ventricu lar tachycardia. Was taken back to the geophysical laboratory supervisor and found to have in-stent thrombosis. This was fi xed. The patient had further stent placed and is now on mechanical ventilation, amiodarone drip, or ogastric tube in place. PAST MEDICAL HISTORY: Diabetes, hypertension. SOCIAL HISTORY: She is a nonsmoker. No alcohol. No history of drug use. FAMILY HISTORY: Noncontributory. REVIEW OF SYSTEMS: A 12-point review of systems currently unable to perform. PHYSICAL EXAMINATION: GENERAL: Moderately obese lady, orally intubated. VITAL SIGNS: Currently afebrile, pulse is 90, blood pressure 126/97, O2 sat 96% on FiO2 of 100%. NECK: Supple. No JVD or lymphadenopathy. CARDIAC: S1, S2. No added sounds or murmurs. CHEST: Diminished air entry bilaterally. ABDOMEN: Soft, nontender. No guarding. No rebound. Obese. EXTREMITIES: No cyanosis, clubbing or edema. NEUROLOGIC: Generalized weakness but unable to assess. LABORATORIES: White count was 22.5, hemoglobin 9.7, platelets of 478. BUN 10, creatinine 0.65. AB G: PH 7.34, pCO2 of 32, PaO2 of 515, bicarb of 17.2. INR was 1.31. Hepatitis and HIV serologies a re negative. Chest x-ray was reviewed, shows no significant changes. EKG demonstrated inferior christiano cardial infarction. IMPRESSION AND PLAN: 1. Acute myocardial infarction with 100% occlusion of right coronary artery requiring stent placeme nt, complicated by in-stent thrombosis. Repeat stent. 2. Traumatic endotracheal intubation with moderate bleeding from oropharynx, exacerbated by antipla telet agents. 3. Probable underlying obstructive sleep apnea. 4. Possible aspiration pneumonia given difficult endotracheal intubation. PLAN: 1. Continue vent support. 2. Continue bronchodilators. 3. Continue cardiac recommendations aspirin, Integrilin, beta villa. 4. Continue hydration as tolerated. 5. Start Zosyn for possible aspiration pneumonia. 6. Anticipate renal insufficiency given contrast load and likely transient hypotension. Dictated By: CHRISTY BARNARD/OMAYRA Conf#: [id number] DID#: [id number]
[2017-09-28] MEDS ORDERED: TICAGRELOR 90 MG TABLET PO SCH (21:00)
[2017-09-28] MEDS ORDERED: METOPROLOL 25 MG TAB PO SCH (21:00)
[2017-09-28] MEDS: ATORVASTATIN 80 MG TAB PO SCH (21:00)
[2017-09-29] VITALS (35 sets, daily range): BP systolic 90–144; BP diastolic 59–85; PULSE 74–92; RESP 11–24
[2017-09-29] MEDS: PROPOFOL 100 ML IV SCH ×2 (02:02→06:08)
[2017-09-29] MEDS: FENTAnyl (DRIP) 1000 mcg/100mL 100 ML IV SCH (02:02)
[2017-09-29] MEDS: PIPER-TAZO 3.375 GM IV (PMX) 50 ML IVPB SCH ×5 (05:28→23:31)
[2017-09-29] MEDS: FAMOTIDINE 20 MG INJ IV SCH (05:28)
[2017-09-29 06:28] LABS: ABNORMAL IP MESSAGE 1; BASOPHILS % 0.1 % (0.0-2.0); EOSINOPHILS # 0.1 10^3/ul (0.0-0.5); EOSINOPHILS % 1.1 % (0.0-7.0); HEMOGLOBIN 7.9 g/dl (12.0-16.0); LYMPHOCYTES # 1.2 10^3/ul (0.8-2.9); LYMPHOCYTES % 11.2 % (15.0-51.0); MEAN CORPUSCULAR HEMOGLOBIN 21.4 pg (29.0-33.0); MEAN CORPUSCULAR HGB CONC 29.3 g/dl (32.0-37.0); MEAN PLATELET VOLUME 10.1 fl (7.4-10.4); MONOCYTE # 0.5 10^3/ul (0.3-0.9); MONOCYTES % 5.1 % (0.0-11.0); NEUTROPHIL # 8.5 10^3/ul (1.6-7.5); NEUTROPHILS % 82.1 % (39.0-77.0); PLATELET COUNT 313 10^3/UL (140-415); WHITE BLOOD COUNT 10.3 10^3/ul (4.8-10.8)
[2017-09-29 06:30] LABS: POSITIVE DIFF @See below
[2017-09-29 06:47] LABS: BILIRUBIN,INDIRECT 0.3 mg/dl (0-1.1); BILIRUBIN,TOTAL 0.3 mg/dl (0.2-1.3); CREATININE 0.91 mg/dl (0.44-1.00); MAGNESIUM 2.1 mg/dl (1.7-2.5); PHOSPHORUS 2.8 mg/dl (2.5-4.9); POTASSIUM 3.6 mmol/L (3.5-5.1)
[2017-09-29 06:57] LABS: T3 UPTAKE 36.8 % (23.5-40.5)
[2017-09-29 07:11] LABS: THYROID STIMULATING HORMONE 7.95 MIU/L (0.465-4.680)
--- NOTE | 2017-09-29 07:19 | RADRPT ---
PROCEDURE: XR Chest. CLINICAL INDICATION: pna chf TECHNIQUE: Portable semi-upright. COMPARISON: 09/28/2017. FINDINGS: Endotracheal tube is tip is located approximately 2.3 cm above the ara. Nasogastric tube extends below the left hemidiaphragm. Low lung volumes. The cardiomediastinal silhouette is now sharply defi asa. Interval significant improved aeration of the left lung following repositioning of the endotrac heal tube. No superimposed consolidation, pleural effusion, CHF or pneumothorax. IMPRESSION: 1. Appropriate positioning of support tubes. 2. Significant improved aeration of the left lung following repositioning of the endotracheal tube. RPTAT: HRSR Physician Kisha Date Time Electronically viewed and signed by Physician Kisha on 09/29/2017 07:18 RR/
[2017-09-29 07:40] LABS: ANISOCYTOSIS 2+ (0-0); EOSINOPHILS % (M) 1 % (0-7); ERYTHROBLAST% (NRBC) (M) 1 % (0-0); GIANT THROMBO% (M) 2 % (0-0); MICROCYTOSIS 2+ (0-0); MONOCYTES % (M) 1 % (0-11); PLATELET ESTIMATE NORMAL; POIKILOCYTOSIS 2+ (0-0); POLYCHROMASIA 2+ (0-0); SPHEROCYTES 2+ (0-0)
[2017-09-29 07:44] LABS: CK-MB 65.1 ng/ml (0.0-2.4)
[2017-09-29 07:53] LABS: TROPONIN-I 36.1 ng/ml (0.00-0.12)
[2017-09-29 08:11] LABS: AADO2 Arterial 67.3 mmHg (7.0-24.0); Arterial Base Excess -3.2 mmol/L (-3.0-3); Arterial COHb 0.4 % (0.0-3.0); Arterial Fraction of Oxyhgb 98.5 % (93.0-99.0); Arterial HCO3 19.1 mmol/L (22.0-26.0); Arterial MetHb 0.1 % (0.0-1.5); Arterial Total Hemglobin 9.1 g/dl (12.0-18.0); MODE VENT - AC
[2017-09-29] MEDS ORDERED: FERROUS SULFATE (EC) 325 MG TAB PO SCH (09:00)
[2017-09-29] MEDS: ASPIRIN (EC) 81 MG TAB PO SCH (09:39)
[2017-09-29] MEDS: PRASUGREL HYDROCHLORIDE 10 MG TABLET PO SCH (09:44)
[2017-09-29] MEDS: FERROUS SULFATE 60 MG/ML 5ML CUP PO SCH (09:56)
[2017-09-29 10:20] LABS: AADO2 Arterial 59.4 mmHg (7.0-24.0); Arterial Base Excess -3.1 mmol/L (-3.0-3); Arterial COHb 0.2 % (0.0-3.0); Arterial Fraction of Oxyhgb 98.7 % (93.0-99.0); Arterial HCO3 19.8 mmol/L (22.0-26.0); Arterial MetHb 0.2 % (0.0-1.5); Arterial Total Hemglobin 9.4 g/dl (12.0-18.0); Blood Gas PS 10; MODE VENT - CPAP
--- NOTE | 2017-09-29 10:28 | CONS ---
Date/Time of Note Date/Time of Note DATE: 09/29/17 TIME: 10:26 Consult Date/Type/Reason Admit Date/Time Sep 28, 2017 at 09:27 Initial Consult Date Type of Consultation: Pulmonary Subjective Patient comfortable this morning. Awake alert oriented on mechanical ventilation. Hemodynamically stable. No significant arrhythmias overnight. Objective Vital Signs Date Time Temp Pulse Resp B/P Pulse Ox O2 Delivery O2 Flow Rate FiO2 09/29/17 09:00 88 15 100 40 09/29/17 08:00 98.8 129/71 Mechanical Ventilator 09/28/17 06:50 2 Intake and Output 09/28/17 09/28/17 09/29/17 14:59 22:59 06:59 Intake Total 274.2 ml 803.32 ml 445.664 ml Output Total 1005 ml 1025 ml Balance 274.2 ml -201.68 ml -579.336 ml Exam PHYSICAL EXAMINATION: GENERAL: Well-nourished, well-developed lady, intubated on mechanical ventilation, appears comfortable at rest, no acute distress. VITAL SIGNS: NECK: Supple, no JVD or lymphadenopathy. CARDIAC: S1, S2, no added sounds or murmurs. CHEST: Diminished air entry bilaterally. ABDOMEN: Soft, nontender. No guarding or rebound. EXTREMITIES: No cyanosis, clubbing, 1+ edema. NEUROLOGIC: Generalized weakness. Results/Medications Result Diagram: 09/29/17 0545 09/29/17 0545 Results 24 hrs Laboratory Tests Test 09/28/17 10:46 09/28/17 11:09 09/28/17 14:23 09/28/17 18:11 White Blood Count 17.6 H 22.5 #H 13.2 #H Red Blood Count 4.82 4.41 3.99 L Hemoglobin 10.4 L 9.7 L 8.4 L Hematocrit 35.6 L 32.6 L 29.2 L Mean Corpuscular Volume 73.9 L 73.9 L 73.2 L Mean Corpuscular Hemoglobin 21.6 L 22.0 L 21.1 L Mean Corpuscular Hemoglobin Concent 29.2 L 29.8 L 28.8 L Red Cell Distribution Width 29.2 H 28.8 H 29.1 H Platelet Count 467 H 478 H 355 # Mean Platelet Volume 9.7 9.9 9.7 Neutrophils % 90.9 H 93.6 H 88.1 H Lymphocytes % 5.8 L 3.0 L 6.7 L Monocytes % 2.3 2.6 4.4 Eosinophils % 0.1 0.0 0.1 Basophils % 0.2 0.2 0.2 Nucleated Red Blood Cells % 0.0 0.0 0.0 Neutrophils # 16.0 H 21.1 H 11.6 H Lymphocytes # 1.0 0.7 L 0.9 Monocytes # 0.4 0.6 0.6 Eosinophils # 0.0 0.0 0.0 Basophils # 0.0 0.0 0.0 Nucleated Red Blood Cells # 0.0 0.0 0.0 Prothrombin Time 16.4 #H Prothrombin Time Ratio 1.3 INR International Normalized Ratio 1.31 Activated Partial Thromboplast Time 43.4 H Sodium Level 138 Potassium Level 4.0 Chloride Level 104 Carbon Dioxide Level 16 L Anion Gap 22 H Blood Urea Nitrogen 10 Creatinine 0.65 Glucose Level 288 H Lactic Acid Level 1.6 Calcium Level 8.3 L Phosphorus Level 3.7 Magnesium Level 2.0 Total Bilirubin 0.5 Direct Bilirubin 0.00 Indirect Bilirubin 0.5 Aspartate Amino Transf (AST/SGOT) 118 H Alanine Aminotransferase (ALT/SGPT) 58 Alkaline Phosphatase 85 Creatine Kinase 867 H 2006 #H 2299 H Creatine Kinase Index 3.9 4.5 5.2 Creatinine Kinase MB (Mass) 34.10 H 91.10 H 119.00 H Troponin I 2.910 *H 45.500 *H 61.800 *H Total Protein 7.2 Albumin 4.2 Globulin 3.00 Albumin/Globulin Ratio 1.40 Blood Gas Specimen Source Blood arterial Arterial Blood Date Drawn 09/28/2017 1:30:50 PM Arterial Blood pH (Temp corrected) 7.346 L Arterial Blood pCO2 (Temp correct) 32.2 L Arterial Blood pO2 (Temp corrected) 515.4 H Arterial Blood HCO3 17.2 L Arterial Blood Base Excess -7.5 L Arterial Blood Oxygen Saturation 99.7 H Reji Test N/A Arterial Blood Gas Puncture Site A-Line Arterial Blood Carboxyhemoglobin 0.2 Arterial Blood Methemoglobin 0.3 Blood Gas A-a O2 Differential 165.4 H Oxyhemoglobin Percent 99.2 H Total Hemoglobin 10.6 L Blood Gas Temperature 37.0 Blood Gas Respiration Rate 20.0 Blood Gas Actual Respiration Rate 20 Blood Gas Modality VENT - AC FiO2 100.0 Blood Gas Tidal Volume 500.0 Blood Gas Low PEEP Setting 5.0 Blood Gas Notified Whom RT Blood Gas Notified Time 09/28/2017 1:37:22 PM Segmented Neutrophils % (Manual) 75 Band Neutrophils % (Manual) 19 H Lymphocytes % (Manual) 3 L Monocytes % (Manual) 3 Metamyelocytes % (manual) 1 H Neutrophils # (Manual) 17.8 H Band Neutrophils # 4.2 H Absolute Lymphocytes (Manual) 0.6 L Absolute Monocytes (Manual) 0.6 Metamyelocytes # 0.2 H Platelet Morphology Comment @See below Poikilocytosis 1+ Anisocytosis 1+ Test 09/29/17 05:45 09/29/17 05:56 09/29/17 07:00 09/29/17 10:00 White Blood Count 10.3 # Red Blood Count 3.70 L Hemoglobin 7.9 L Hematocrit 27.0 L Mean Corpuscular Volume 73.0 L Mean Corpuscular Hemoglobin 21.4 L Mean Corpuscular Hemoglobin Concent 29.3 L Red Cell Distribution Width Platelet Count 313 Mean Platelet Volume 10.1 Neutrophils % 82.1 H Segmented Neutrophils % (Manual) 52 Band Neutrophils % (Manual) 18 H Lymphocytes % 11.2 L Lymphocytes % (Manual) 28 Monocytes % 5.1 Monocytes % (Manual) 1 Eosinophils % 1.1 Eosinophils % (Manual) 1 Basophils % 0.1 Nucleated Red Blood Cells % 1 H Neutrophils # 8.5 H Neutrophils # (Manual) 5.5 Band Neutrophils # 1.8 H Absolute Lymphocytes (Manual) 2.8 Lymphocytes # 1.2 Monocytes # 0.5 Absolute Monocytes (Manual) 0.1 L Eosinophils # 0.1 Basophils # 0.0 Nucleated Red Blood Cells # 0.0 Platelet Estimate NORMAL Giant Platelets 2 H Polychromasia 2+ Poikilocytosis 2+ Anisocytosis 2+ Microcytosis 2+ Spherocytes 2+ Sodium Level 137 Potassium Level 3.6 Chloride Level 107 Carbon Dioxide Level 23 Anion Gap 11 # Blood Urea Nitrogen 9 Creatinine 0.91 Glucose Level 175 # Hemoglobin A1c 7.2 H Calcium Level 8.0 L Phosphorus Level 2.8 Magnesium Level 2.1 Total Bilirubin 0.3 Direct Bilirubin 0.00 Indirect Bilirubin 0.3 Aspartate Amino Transf (AST/SGOT) 215 H Alanine Aminotransferase (ALT/SGPT) 66 Alkaline Phosphatase 65 Creatine Kinase 2038 H Creatine Kinase Index 3.2 Creatinine Kinase MB (Mass) 65.10 H Troponin I 36.100 *H Total Protein 6.0 #L Albumin 3.0 #L Globulin 3.00 Albumin/Globulin Ratio 1.00 Triglycerides Level 208 H Cholesterol Level 114 # LDL Cholesterol, Calculated 53 # HDL Cholesterol 19 L Cholesterol/HDL Ratio 6.0 Thyroid Stimulating Hormone (TSH) 7.950 H Free Thyroxine Index 1.80 Thyroxine (T4) 4.9 L Triiodothyronine (T3) Uptake 36.8 Bedside Glucose 196 Blood Gas Specimen Source Blood arterial Blood arterial Arterial Blood Date Drawn 09/29/2017 8:00:43 AM 09/29/2017 10:10:02 AM Arterial Blood pH (Temp corrected) 7.497 H 7.466 H Arterial Blood pCO2 (Temp correct) 25.2 L 28.1 L Arterial Blood pO2 (Temp corrected) 188.9 H 193.5 H Arterial Blood HCO3 19.1 L 19.8 L Arterial Blood Base Excess -3.2 L -3.1 L Arterial Blood Oxygen Saturation 99.0 H 99.1 H Reji Test N/A N/A Arterial Blood Gas Puncture Site A-Line A-Line Arterial Blood Carboxyhemoglobin 0.4 0.2 Arterial Blood Methemoglobin 0.1 0.2 Blood Gas A-a O2 Differential 67.3 H 59.4 H Oxyhemoglobin Percent 98.5 98.7 Total Hemoglobin 9.1 L 9.4 L Blood Gas Temperature 37.0 37.0 Blood Gas Respiration Rate 20.0 Blood Gas Actual Respiration Rate 24 11 Blood Gas Modality VENT - AC VENT - CPAP FiO2 40.0 40.0 Blood Gas Tidal Volume 500.0 Blood Gas Low PEEP Setting 5.0 5.0 Blood Gas Notified Whom JUAN MARTINEZ Blood Gas Notified Time 09/29/2017 8:11:36 AM 09/29/2017 10:20:37 AM Blood Gas Pressure Support 10 Medications Current Medications Aspirin (Halfprin) 81 mg DAILY PO Last administered on 09/29/17t 09:39; Admin Dose 81 MG; Start 09/29/17 at 09:00 Acetaminophen (Tylenol Tab) 650 mg Q4H PRN PO NON-CARDIAC PAIN LEVEL 1-3; Start 09/28/17 at 09:00 Al Hydrox/Mg Hydrox/Simethicone (Mag-Al Plus) 30 ml Q4H PRN PO GASTROINTESTINAL UPSET; Start 09/28/17 at 09:00 Ondansetron HCl (Zofran Inj) 4 mg Q4H PRN IV NAUSEA AND/OR VOMITING; Start 09/28/17 at 09:00 Atorvastatin Calcium (Lipitor) 80 mg DAILY@21 PO ; Start 09/28/17 at 21:00 Ondansetron HCl (Zofran Inj) 4 mg Q6H PRN IV NAUSEA AND/OR VOMITING; Start 09/28/17 at 09:30 Acetaminophen (Tylenol Tab) 650 mg Q6H PRN PO PAIN LEVEL 1-3 OR FEVER; Start 09/28/17 at 09:30 Acetaminophen (Tylenol Supp) 650 mg Q6H PRN [place] PAIN LEVEL 1-3 OR FEVER; Start 09/28/17 at 09:30 Acetaminophen/ Hydrocodone Bitart ([place] (5/325)) 1 tab Q6H PRN PO MODERATE PAIN LEVEL 4-6; Start 09/28/17 at 09:30 Acetaminophen/ Hydrocodone Bitart ([place] (5/325)) 2 tab Q6H PRN PO SEVERE PAIN LEVEL 7-10; Start 09/28/17 at 09:30 Morphine Sulfate (morphine) 2 mg Q4H PRN IV SEVERE PAIN LEVEL 7-10; Start 09/28 at 09:30 Docusate Sodium (Colace) 100 mg Q12H PRN PO CONSTIPATION; Start 09/28/17 at 09: 30 Magnesium Hydroxide (Milk Of Mag) 30 ml DAILY PRN PO CONSTIPATION; Start at 09:30 Bisacodyl (Dulcolax Supp) 10 mg DAILY PRN [place] CONSTIPATION; Start 09/28/17 at 09 :30 Famotidine 20 mg 20 mg DAILY@06 IV Last administered on 09/29/17 05:28; Admin Dose 20 MG; Start 09/29/17 at 06:00 Lidocaine HCl/ Dextrose 500 ml @ 15 mls/hr Q24H IV Last administered on 10:30; Admin Dose 15 MLS/HR; Start 09/28/17 at 10:30 Propofol (Diprivan) 100 ml @ 3.06 mls/hr Q12H IV Last administered on 06:08; Admin Dose 15.3 MLS/HR; Start 09/28/17 at 11:00 Prasugrel 10 mg 10 mg DAILY PO Last administered on 09/29/17 09:44; Admin Dose 10 MG; Start 09/29/17 at 09:00 Norepinephrine 250 ml @ 1.875 mls/ hr TITRATE IV Last administered on 15:23; Admin Dose 7.5 MLS/HR; Start 09/28/17 at 15:00 Fentanyl 100 ml @ 2.5 mls/hr TITRATE IV Last administered on 09/29/17 02:02; Admin Dose 6 MLS/HR; Start 09/28/17 at 15:30 Piperacillin Sod/ Tazobactam Sod 50 ml @ 100 mls/hr Q6 IVPB Last administered on 09/29/17 05:28; Admin Dose 100 MLS/HR; Start 09/28/17 at 18:00 Amiodarone HCl/ Dextrose (Cordarone Iv/ D5W) 500 ml @ 0 mls/hr Q0M IV Last administered on 09/28/17 16:38; Admin Dose 33.3 MLS/HR; Start 09/28/17 at 17:00 Ferrous Sulfate (Feosol Liquid Cup) 300 mg DAILY PO Last administered on 09:56; Admin Dose 300 MG; Start 09/29/17 at 10:00 Assessment/Plan Chief Complaint/Hosp Course IMPRESSION AND PLAN: 1. Acute myocardial infarction with 100% occlusion of right coronary artery requiring stent placement, complicated by in-stent thrombosis. Stent revision and replacement. 2. Traumatic endotracheal intubation with moderate bleeding from oropharynx, exacerbated by antiplatelet agents. 3. Probable underlying obstructive sleep apnea. 4. Possible aspiration pneumonia given difficult endotracheal intubation. PLAN: 1. Continue vent support. Cuff leak test and CPAP trial. 2. Continue bronchodilators. 3. Continue cardiac recommendations aspirin, Integrilin, beta villa. 4. Continue hydration as tolerated. 5. Start Zosyn for possible aspiration pneumonia. 6. Anticipate renal insufficiency given contrast load and likely transient hypotension. Problems: CHRISTY SUN MD, [facility] Sep 29, 2017 10:27
--- NOTE | 2017-09-29 10:34 | PN ---
Date/Time of Note Date/Time of Note DATE: 09/29/17 TIME: 10:30 Assessment/Plan VTE Prophylaxis VTE Prophylaxis Intervention: SCD's Lines/Catheters [facility] arterial sheath Urinary Cath still in place: Yes Assessment/Plan Chief Complaint/Hosp Course Assessment and plan 1. Non-ST elevated myocardial infarction (inferiorly). Patient is status post PCI with stent placed to RCA. Continue antiplatelet therapy. Stitch Wheeler following. 2. V. fib cardiac arrest. Patient did suffer from this episode status post PCI. Patient on amiodarone. Stable at present. Continue telemetry monitoring. 3. Suspect diabetes. A1c of 7.2. Will get software educator to follow. Will adjust insulin regimen as needed 4. Suspect hypertension. Will provide with antihypertensives and adjust needed. 5. Obesity. Weight reduction advised 6. Dyslipidemia. Continue on statin medication Disposition and plan: Plan for extubation. Monitor respiratory status. Monitor on telemetry. clinical document improvement educator follow. Insulin regimen adjusted. Critical CARE time: Greater than 30 minutes Discussed plan of care with Dr. Anglin Problems: Subjective 24 Hr Interval Summary Free Text/Dictation Patient remains on mechanical ventilation. Alert. Sedation low. Does follow commands. No signs of distress. Family at bedside. Exam/Review of Systems Vital Signs Vitals Vital Signs Date Time Temp Pulse Resp B/P Pulse Ox O2 Delivery O2 Flow Rate FiO2 09/29/17 09:00 88 15 100 40 09/29/17 08:00 98.8 129/71 Mechanical Ventilator 09/28/17 06:50 2 Intake and Output 09/28/17 09/28/17 09/29/17 15:00 23:00 07:00 Intake Total 337.2 ml 785.624 ml 400.36 ml Output Total 1125 ml 1055 ml Balance 337.2 ml -339.376 ml -654.64 ml Exam Constitutional: alert, obese, oriented Psych: nl mood/affect Head: normocephalic Eyes: nl conjunctiva Neck: non-tender, supple Respiratory: clear to auscultation Cardiovascular: other Gastrointestinal: non-tender, soft (Heart murmur auscultated) Musculoskeletal: nl extremities to inspection, nl gait and stance Extremities: normal pulses Neurological: BARLEY STEEPER II-XII intact, nl mental status, nl speech Skin: nl turgor Results Result Diagram: 09/29/17 0545 09/29/17 0545 Results 24 hrs Laboratory Tests Test 09/28/17 10:46 09/28/17 11:09 09/28/17 14:23 09/28/17 18:11 White Blood Count 17.6 H 22.5 #H 13.2 #H Red Blood Count 4.82 4.41 3.99 L Hemoglobin 10.4 L 9.7 L 8.4 L Hematocrit 35.6 L 32.6 L 29.2 L Mean Corpuscular Volume 73.9 L 73.9 L 73.2 L Mean Corpuscular Hemoglobin 21.6 L 22.0 L 21.1 L Mean Corpuscular Hemoglobin Concent 29.2 L 29.8 L 28.8 L Red Cell Distribution Width 29.2 H 28.8 H 29.1 H Platelet Count 467 H 478 H 355 # Mean Platelet Volume 9.7 9.9 9.7 Neutrophils % 90.9 H 93.6 H 88.1 H Lymphocytes % 5.8 L 3.0 L 6.7 L Monocytes % 2.3 2.6 4.4 Eosinophils % 0.1 0.0 0.1 Basophils % 0.2 0.2 0.2 Nucleated Red Blood Cells % 0.0 0.0 0.0 Neutrophils # 16.0 H 21.1 H 11.6 H Lymphocytes # 1.0 0.7 L 0.9 Monocytes # 0.4 0.6 0.6 Eosinophils # 0.0 0.0 0.0 Basophils # 0.0 0.0 0.0 Nucleated Red Blood Cells # 0.0 0.0 0.0 Prothrombin Time 16.4 #H Prothrombin Time Ratio 1.3 INR International Normalized Ratio 1.31 Activated Partial Thromboplast Time 43.4 H Sodium Level 138 Potassium Level 4.0 Chloride Level 104 Carbon Dioxide Level 16 L Anion Gap 22 H Blood Urea Nitrogen 10 Creatinine 0.65 Glucose Level 288 H Lactic Acid Level 1.6 Calcium Level 8.3 L Phosphorus Level 3.7 Magnesium Level 2.0 Total Bilirubin 0.5 Direct Bilirubin 0.00 Indirect Bilirubin 0.5 Aspartate Amino Transf (AST/SGOT) 118 H Alanine Aminotransferase (ALT/SGPT) 58 Alkaline Phosphatase 85 Creatine Kinase 867 H 2006 #H 2299 H Creatine Kinase Index 3.9 4.5 5.2 Creatinine Kinase MB (Mass) 34.10 H 91.10 H 119.00 H Troponin I 2.910 *H 45.500 *H 61.800 *H Total Protein 7.2 Albumin 4.2 Globulin 3.00 Albumin/Globulin Ratio 1.40 Blood Gas Specimen Source Blood arterial Arterial Blood Date Drawn 09/28/2017 1:30:50 PM Arterial Blood pH (Temp corrected) 7.346 L Arterial Blood pCO2 (Temp correct) 32.2 L Arterial Blood pO2 (Temp corrected) 515.4 H Arterial Blood HCO3 17.2 L Arterial Blood Base Excess -7.5 L Arterial Blood Oxygen Saturation 99.7 H Reji Test N/A Arterial Blood Gas Puncture Site A-Line Arterial Blood Carboxyhemoglobin 0.2 Arterial Blood Methemoglobin 0.3 Blood Gas A-a O2 Differential 165.4 H Oxyhemoglobin Percent 99.2 H Total Hemoglobin 10.6 L Blood Gas Temperature 37.0 Blood Gas Respiration Rate 20.0 Blood Gas Actual Respiration Rate 20 Blood Gas Modality VENT - AC FiO2 100.0 Blood Gas Tidal Volume 500.0 Blood Gas Low PEEP Setting 5.0 Blood Gas Notified Whom RT Blood Gas Notified Time 09/28/2017 1:37:22 PM Segmented Neutrophils % (Manual) 75 Band Neutrophils % (Manual) 19 H Lymphocytes % (Manual) 3 L Monocytes % (Manual) 3 Metamyelocytes % (manual) 1 H Neutrophils # (Manual) 17.8 H Band Neutrophils # 4.2 H Absolute Lymphocytes (Manual) 0.6 L Absolute Monocytes (Manual) 0.6 Metamyelocytes # 0.2 H Platelet Morphology Comment @See below Poikilocytosis 1+ Anisocytosis 1+ Test 09/29/17 05:45 09/29/17 05:56 09/29/17 07:00 09/29/17 10:00 White Blood Count 10.3 # Red Blood Count 3.70 L Hemoglobin 7.9 L Hematocrit 27.0 L Mean Corpuscular Volume 73.0 L Mean Corpuscular Hemoglobin 21.4 L Mean Corpuscular Hemoglobin Concent 29.3 L Red Cell Distribution Width Platelet Count 313 Mean Platelet Volume 10.1 Neutrophils % 82.1 H Segmented Neutrophils % (Manual) 52 Band Neutrophils % (Manual) 18 H Lymphocytes % 11.2 L Lymphocytes % (Manual) 28 Monocytes % 5.1 Monocytes % (Manual) 1 Eosinophils % 1.1 Eosinophils % (Manual) 1 Basophils % 0.1 Nucleated Red Blood Cells % 1 H Neutrophils # 8.5 H Neutrophils # (Manual) 5.5 Band Neutrophils # 1.8 H Absolute Lymphocytes (Manual) 2.8 Lymphocytes # 1.2 Monocytes # 0.5 Absolute Monocytes (Manual) 0.1 L Eosinophils # 0.1 Basophils # 0.0 Nucleated Red Blood Cells # 0.0 Platelet Estimate NORMAL Giant Platelets 2 H Polychromasia 2+ Poikilocytosis 2+ Anisocytosis 2+ Microcytosis 2+ Spherocytes 2+ Sodium Level 137 Potassium Level 3.6 Chloride Level 107 Carbon Dioxide Level 23 Anion Gap 11 # Blood Urea Nitrogen 9 Creatinine 0.91 Glucose Level 175 # Hemoglobin A1c 7.2 H Calcium Level 8.0 L Phosphorus Level 2.8 Magnesium Level 2.1 Total Bilirubin 0.3 Direct Bilirubin 0.00 Indirect Bilirubin 0.3 Aspartate Amino Transf (AST/SGOT) 215 H Alanine Aminotransferase (ALT/SGPT) 66 Alkaline Phosphatase 65 Creatine Kinase 2038 H Creatine Kinase Index 3.2 Creatinine Kinase MB (Mass) 65.10 H Troponin I 36.100 *H Total Protein 6.0 #L Albumin 3.0 #L Globulin 3.00 Albumin/Globulin Ratio 1.00 Triglycerides Level 208 H Cholesterol Level 114 # LDL Cholesterol, Calculated 53 # HDL Cholesterol 19 L Cholesterol/HDL Ratio 6.0 Thyroid Stimulating Hormone (TSH) 7.950 H Free Thyroxine Index 1.80 Thyroxine (T4) 4.9 L Triiodothyronine (T3) Uptake 36.8 Bedside Glucose 196 Blood Gas Specimen Source Blood arterial Blood arterial Arterial Blood Date Drawn 09/29/2017 8:00:43 AM 09/29/2017 10:10:02 AM Arterial Blood pH (Temp corrected) 7.497 H 7.466 H Arterial Blood pCO2 (Temp correct) 25.2 L 28.1 L Arterial Blood pO2 (Temp corrected) 188.9 H 193.5 H Arterial Blood HCO3 19.1 L 19.8 L Arterial Blood Base Excess -3.2 L -3.1 L Arterial Blood Oxygen Saturation 99.0 H 99.1 H Reji Test N/A N/A Arterial Blood Gas Puncture Site A-Line A-Line Arterial Blood Carboxyhemoglobin 0.4 0.2 Arterial Blood Methemoglobin 0.1 0.2 Blood Gas A-a O2 Differential 67.3 H 59.4 H Oxyhemoglobin Percent 98.5 98.7 Total Hemoglobin 9.1 L 9.4 L Blood Gas Temperature 37.0 37.0 Blood Gas Respiration Rate 20.0 Blood Gas Actual Respiration Rate 24 11 Blood Gas Modality VENT - AC VENT - CPAP FiO2 40.0 40.0 Blood Gas Tidal Volume 500.0 Blood Gas Low PEEP Setting 5.0 5.0 Blood Gas Notified Whom JUAN MARTINEZ Blood Gas Notified Time 09/29/2017 8:11:36 AM 09/29/2017 10:20:37 AM Blood Gas Pressure Support 10 Medications Medications Current Medications Aspirin (Halfprin) 81 mg DAILY PO Last administered on 09/29/17t 09:39; Admin Dose 81 MG; Start 09/29/17 at 09:00 Acetaminophen (Tylenol Tab) 650 mg Q4H PRN PO NON-CARDIAC PAIN LEVEL 1-3; Start 09/28/17 at 09:00 Al Hydrox/Mg Hydrox/Simethicone (Mag-Al Plus) 30 ml Q4H PRN PO GASTROINTESTINAL UPSET; Start 09/28/17 at 09:00 Ondansetron HCl (Zofran Inj) 4 mg Q4H PRN IV NAUSEA AND/OR VOMITING; Start 09/28/17 at 09:00 Atorvastatin Calcium (Lipitor) 80 mg DAILY@21 PO ; Start 09/28/17 at 21:00 Ondansetron HCl (Zofran Inj) 4 mg Q6H PRN IV NAUSEA AND/OR VOMITING; Start 09/28/17 at 09:30 Acetaminophen (Tylenol Tab) 650 mg Q6H PRN PO PAIN LEVEL 1-3 OR FEVER; Start 09/28/17 at 09:30 Acetaminophen (Tylenol Supp) [address] PAIN LEVEL 1-3 OR FEVER; Start 09/28/17 at 09:30 Acetaminophen/ Hydrocodone Bitart ([place] (5/325)) 1 tab Q6H PRN PO MODERATE PAIN LEVEL 4-6; Start 09/28/17 at 09:30 Acetaminophen/ Hydrocodone Bitart ([place] (5/325)) 2 tab Q6H PRN PO SEVERE PAIN LEVEL 7-10; Start 09/28/17 at 09:30 Morphine Sulfate (morphine) 2 mg Q4H PRN IV SEVERE PAIN LEVEL 7-10; Start 09/28 at 09:30 Docusate Sodium (Colace) 100 mg Q12H PRN PO CONSTIPATION; Start 09/28/17 at 09: 30 Magnesium Hydroxide (Milk Of Mag) 30 ml DAILY PRN PO CONSTIPATION; Start at 09:30 Bisacodyl (Dulcolax Supp) [address] CONSTIPATION; Start 09/28/17 at 09 :30 Famotidine 20 mg 20 mg DAILY@06 IV Last administered on 09/29/17 05:28; Admin Dose 20 MG; Start 09/29/17 at 06:00 Lidocaine HCl/ Dextrose 500 ml @ 15 mls/hr Q24H IV Last administered on 10:30; Admin Dose 15 MLS/HR; Start 09/28/17 at 10:30 Propofol (Diprivan) 100 ml @ 3.06 mls/hr Q12H IV Last administered on 06:08; Admin Dose 15.3 MLS/HR; Start 09/28/17 at 11:00 Prasugrel 10 mg 10 mg DAILY PO Last administered on 09/29/17 09:44; Admin Dose 10 MG; Start 09/29/17 at 09:00 Norepinephrine 250 ml @ 1.875 mls/ hr TITRATE IV Last administered on 15:23; Admin Dose 7.5 MLS/HR; Start 09/28/17 at 15:00 Fentanyl 100 ml @ 2.5 mls/hr TITRATE IV Last administered on 09/29/17 02:02; Admin Dose 6 MLS/HR; Start 09/28/17 at 15:30 Piperacillin Sod/ Tazobactam Sod 50 ml @ 100 mls/hr Q6 IVPB Last administered on 09/29/17 05:28; Admin Dose 100 MLS/HR; Start 09/28/17 at 18:00 Amiodarone HCl/ Dextrose (Cordarone Iv/ D5W) 500 ml @ 0 mls/hr Q0M IV Last administered on 09/28/17 16:38; Admin Dose 33.3 MLS/HR; Start 09/28/17 at 17:00 Ferrous Sulfate (Feosol Liquid Cup) 300 mg DAILY PO Last administered on 09:56; Admin Dose 300 MG; Start 09/29/17 at 10:00 BERTHA LEBLANC Sep 29, 2017 10:34
[2017-09-29] MEDS ORDERED: DEXTROSE 50% 50 ML SYRINGE IV PRN ×2 (11:00)
[2017-09-29] MEDS ORDERED: GLUCOSE GEL 15 GRAM TUBE BUCCAL PRN (11:00)
[2017-09-29] MEDS ORDERED: GLUCAGON 1 MG INJ IM PRN (11:00)
[2017-09-29] MEDS ORDERED: GLUCOSE GEL 15 GRAM TUBE PO PRN ×2 (11:00)
--- NOTE | 2017-09-29 13:02 | RADRPT ---
Vent Rate: 83 bpm RR Interval: 0 msec ID Interval: 146 msec QRS Duration: 86 msec QT Interval: 412 msec QTC Interval: 484 msec P-R-T [place]: 52 - 37 - 121 degrees Age and gender specific ECG analysis Normal sinus rhythm Inferior infarct , possibly acute T wave abnormality, consider lateral ischemia ACUTE [place] Consider right ventricular involvement in acute inferior infarct Abnormal ECG Electronically Signed By: Hamzah Astorga [id number]
--- NOTE | 2017-09-29 13:03 | RADRPT ---
Vent Rate: 83 bpm RR Interval: 0 msec ID Interval: 126 msec QRS Duration: 86 msec QT Interval: 408 msec QTC Interval: 479 msec P-R-T [place]: 40 - 38 - -85 degrees Normal sinus rhythm Possible Inferior infarct , age undetermined Abnormal ECG Electronically Signed By: Hamzah Astorga [id number]
[2017-09-29] MEDS ORDERED: POTASSIUM CHLORIDE (SR) 20 MEQ TAB PO STA (13:22)
--- NOTE | 2017-09-29 13:32 | CONS ---
Date/Time of Note Date/Time of Note DATE: 09/29/17 TIME: 13:23 Assessment/Plan Assessment/Plan Additional Assessment/Plan Acute inferior ST elevation [place] status post PCI to RCA with acute stent thrombosis status post repeat intervention Ventricular fibrillation/tachycardia status post defibrillation Coronary artery disease Preserved ejection fraction Status post extubation Diabetes Hypertension Dyslipidemia -On review of telemetry, no further significant arrhythmias. Will DC IV amiodarone. Patient extubated this morning. Plan to remove femoral artery and vein sheath today. Continue aspirin and Effient given patient with acute stent thrombosis while on Brilinta. Continue high-dose statin therapy. If blood pressure and heart rate remained stable over the next 24 hours, would start beta -villa and NICCI inhibitor if renal function permits. Maintain potassium above 4.0 and magnesium above 2.0. Plan of care and findings discussed with patient and significant other at bedside in detail. Consultation Date/Type/Reason Admit Date/Time Sep 28, 2017 at 09:27 Initial Consult Date Type of Consultation: CV 24 HR Interval Summary Free Text/Dictation Patient feeling much better today. Denies chest pain, shortness of breath or palpitations. Extubated this morning. Exam/Review of Systems Vital Signs Vitals Vital Signs Date Time Temp Pulse Resp B/P Pulse Ox O2 Delivery O2 Flow Rate FiO2 09/29/17 13:13 100 3.0 09/29/17 11:00 85 18 138/77 Nasal Cannula 09/29/17 09:00 40 09/29/17 08:00 98.8 Intake and Output 09/28/17 09/28/17 09/29/17 15:00 23:00 07:00 Intake Total 337.2 ml 785.624 ml 444.66 ml Output Total 1125 ml 1055 ml Balance 337.2 ml -339.376 ml -610.34 ml Exam No apparent distress, Constitutional: alert, obese, oriented (To person place and time) Head: normocephalic Respiratory: other (Coarse breath sounds bilaterally, no wheezing) Cardiovascular: other (S1-S2 heard), regular rate and rhythm, systolic murmur Gastrointestinal: bowel sounds, non-tender, soft Extremities: edema (Trace) Results Result Diagram: 09/29/17 0545 09/29/17 0545 Results 24 hrs Laboratory Tests Test 09/28/17 14:23 09/28/17 18:11 09/29/17 05:45 09/29/17 05:56 White Blood Count 22.5 #H 13.2 #H 10.3 # Red Blood Count 4.41 3.99 L 3.70 L Hemoglobin 9.7 L 8.4 L 7.9 L Hematocrit 32.6 L 29.2 L 27.0 L Mean Corpuscular Volume 73.9 L 73.2 L 73.0 L Mean Corpuscular Hemoglobin 22.0 L 21.1 L 21.4 L Mean Corpuscular Hemoglobin Concent 29.8 L 28.8 L 29.3 L Red Cell Distribution Width 28.8 H 29.1 H Platelet Count 478 H 355 # 313 Mean Platelet Volume 9.9 9.7 10.1 Neutrophils % 93.6 H 88.1 H 82.1 H Segmented Neutrophils % (Manual) 75 52 Band Neutrophils % (Manual) 19 H 18 H Lymphocytes % 3.0 L 6.7 L 11.2 L Lymphocytes % (Manual) 3 L 28 Monocytes % 2.6 4.4 5.1 Monocytes % (Manual) 3 1 Eosinophils % 0.0 0.1 1.1 Basophils % 0.2 0.2 0.1 Metamyelocytes % (manual) 1 H Nucleated Red Blood Cells % 0.0 0.0 1 H Neutrophils # 21.1 H 11.6 H 8.5 H Neutrophils # (Manual) 17.8 H 5.5 Band Neutrophils # 4.2 H 1.8 H Absolute Lymphocytes (Manual) 0.6 L 2.8 Lymphocytes # 0.7 L 0.9 1.2 Monocytes # 0.6 0.6 0.5 Absolute Monocytes (Manual) 0.6 0.1 L Eosinophils # 0.0 0.0 0.1 Basophils # 0.0 0.0 0.0 Metamyelocytes # 0.2 H Nucleated Red Blood Cells # 0.0 0.0 0.0 Platelet Morphology Comment @See below Poikilocytosis 1+ 2+ Anisocytosis 1+ 2+ Creatine Kinase 2006 #H 2299 H 2038 H Creatine Kinase Index 4.5 5.2 3.2 Creatinine Kinase MB (Mass) 91.10 H 119.00 H 65.10 H Troponin I 45.500 *H 61.800 *H 36.100 *H Eosinophils % (Manual) 1 Platelet Estimate NORMAL Giant Platelets 2 H Polychromasia 2+ Microcytosis 2+ Spherocytes 2+ Sodium Level 137 Potassium Level 3.6 Chloride Level 107 Carbon Dioxide Level 23 Anion Gap 11 # Blood Urea Nitrogen 9 Creatinine 0.91 Glucose Level 175 # Hemoglobin A1c 7.2 H Calcium Level 8.0 L Phosphorus Level 2.8 Magnesium Level 2.1 Total Bilirubin 0.3 Direct Bilirubin 0.00 Indirect Bilirubin 0.3 Aspartate Amino Transf (AST/SGOT) 215 H Alanine Aminotransferase (ALT/SGPT) 66 Alkaline Phosphatase 65 Total Protein 6.0 #L Albumin 3.0 #L Globulin 3.00 Albumin/Globulin Ratio 1.00 Triglycerides Level 208 H Cholesterol Level 114 # LDL Cholesterol, Calculated 53 # HDL Cholesterol 19 L Cholesterol/HDL Ratio 6.0 Thyroid Stimulating Hormone (TSH) 7.950 H Free Thyroxine Index 1.80 Thyroxine (T4) 4.9 L Triiodothyronine (T3) Uptake 36.8 Bedside Glucose 196 Test 09/29/17 07:00 09/29/17 10:00 09/29/17 12:48 Blood Gas Specimen Source Blood arterial Blood arterial Arterial Blood Date Drawn 09/29/2017 8:00:43 AM 09/29/2017 10:10:02 AM Arterial Blood pH (Temp corrected) 7.497 H 7.466 H Arterial Blood pCO2 (Temp correct) 25.2 L 28.1 L Arterial Blood pO2 (Temp corrected) 188.9 H 193.5 H Arterial Blood HCO3 19.1 L 19.8 L Arterial Blood Base Excess -3.2 L -3.1 L Arterial Blood Oxygen Saturation 99.0 H 99.1 H Reji Test N/A N/A Arterial Blood Gas Puncture Site A-Line A-Line Arterial Blood Carboxyhemoglobin 0.4 0.2 Arterial Blood Methemoglobin 0.1 0.2 Blood Gas A-a O2 Differential 67.3 H 59.4 H Oxyhemoglobin Percent 98.5 98.7 Total Hemoglobin 9.1 L 9.4 L Blood Gas Temperature 37.0 37.0 Blood Gas Respiration Rate 20.0 Blood Gas Actual Respiration Rate 24 11 Blood Gas Modality VENT - AC VENT - CPAP FiO2 40.0 40.0 Blood Gas Tidal Volume 500.0 Blood Gas Low PEEP Setting 5.0 5.0 Blood Gas Notified Whom JUAN MARTINEZ Blood Gas Notified Time 09/29/2017 8:11:36 AM 09/29/2017 10:20:37 AM Blood Gas Pressure Support 10 Bedside Glucose 189 Medications Medications Current Medications Aspirin (Halfprin) 81 mg DAILY PO Last administered on 09/29/17 09:39; Admin Dose 81 MG; Start 09/29/17 at 09:00 Acetaminophen (Tylenol Tab) 650 mg Q4H PRN PO NON-CARDIAC PAIN LEVEL 1-3; Start 09/28/17 at 09:00 Al Hydrox/Mg Hydrox/Simethicone (Mag-Al Plus) 30 ml Q4H PRN PO GASTROINTESTINAL UPSET; Start 09/28/17 at 09:00 Ondansetron HCl (Zofran Inj) 4 mg Q4H PRN IV NAUSEA AND/OR VOMITING; Start 09/28/17 at 09:00 Atorvastatin Calcium (Lipitor) 80 mg DAILY@21 PO ; Start 09/28/17 at 21:00 Ondansetron HCl (Zofran Inj) 4 mg Q6H PRN IV NAUSEA AND/OR VOMITING; Start 09/28/17 at 09:30 Acetaminophen (Tylenol Tab) 650 mg Q6H PRN PO PAIN LEVEL 1-3 OR FEVER; Start 09/28/17 at 09:30 Acetaminophen (Tylenol Supp) 650 mg Q6H PRN [place] PAIN LEVEL 1-3 OR FEVER; Start 09/28/17 at 09:30 Acetaminophen/ Hydrocodone Bitart ([place] (5/325)) 1 tab Q6H PRN PO MODERATE PAIN LEVEL 4-6; Start 09/28/17 at 09:30 Acetaminophen/ Hydrocodone Bitart ([place] (5/325)) 2 tab Q6H PRN PO SEVERE PAIN LEVEL 7-10; Start 09/28/17 at 09:30 Morphine Sulfate (morphine) 2 mg Q4H PRN IV SEVERE PAIN LEVEL 7-10; Start 09/28 at 09:30 Docusate Sodium (Colace) 100 mg Q12H PRN PO CONSTIPATION; Start 09/28/17 at 09: 30 Magnesium Hydroxide (Milk Of Mag) 30 ml DAILY PRN PO CONSTIPATION; Start at 09:30 Bisacodyl (Dulcolax Supp) 10 mg DAILY PRN [place] CONSTIPATION; Start 09/28/17 at 09 :30 Famotidine (Pepcid Iv) 20 mg DAILY@06 IV Last administered on 09/29/17 05:28; Admin Dose 20 MG; Start 09/29/17 at 06:00 Prasugrel 10 mg 10 mg DAILY PO Last administered on 09/29/17 09:44; Admin Dose 10 MG; Start 09/29/17 at 09:00 Norepinephrine 250 ml @ 1.875 mls/ hr TITRATE IV Last administered on 15:23; Admin Dose 7.5 MLS/HR; Start 09/28/17 at 15:00 Piperacillin Sod/ Tazobactam Sod (Zosyn 3.375gm/ 50 ml (Pmx)) 50 ml @ 100 mls/ hr Q6 IVPB Last administered on 09/29/17 12:54; Admin Dose 100 MLS/HR; Start 09/28/17 at 18:00 Ferrous Sulfate (Feosol Liquid Cup) 300 mg DAILY PO Last administered on 09:56; Admin Dose 300 MG; Start 09/29/17 at 10:00 Diagnostic Test (Pha) (Accu-Chek) 1 ea 02 XX ; Start 09/30/17 at 02:00 Insulin Glargine (Lantus) 15 unit DAILY@08 SC ; Start 09/30/17 at 08:00 Miscellaneous Information 1 ea NOTE XX ; Start 09/29/17 at 11:00 Glucose (Glutose) 15 gm Q15M PRN PO DECREASED GLUCOSE; Start 09/29/17 at 11:00 Glucose (Glutose) 22.5 gm Q15M PRN PO DECREASED GLUCOSE; Start 09/29/17 at 11: 00 Dextrose (D50w Syringe) 25 ml Q15M PRN IV DECREASED GLUCOSE; Start 09/29/17 at 11:00 Dextrose (D50w Syringe) 50 ml Q15M PRN IV DECREASED GLUCOSE; Start 09/29/17 at 11:00 Glucagon (Glucagen) 1 mg Q15M PRN IM DECREASED GLUCOSE; Start 09/29/17 at 11:00 Glucose (Glutose) 15 gm Q15M PRN BUCCAL DECREASED GLUCOSE; Start 09/29/17 at 11 :00 Mikal Garcia DO Sep 29, 2017 13:31
[2017-09-29] MEDS: INSULIN ASPART [NOVOLOG] 3 ML PEN SC SCH ×2 (14:23→17:41)
[2017-09-29] MEDS ORDERED: ATROPINE 1 MG/10 ML SYRINGE ONE (15:30)
[2017-09-29] MEDS: ATORVASTATIN 80 MG TAB PO SCH (20:15)
[2017-09-30] VITALS (21 sets, daily range): BP systolic 88–125; BP diastolic 60–103; PULSE 73–84; RESP 12–20
[2017-09-30] MEDS ORDERED: ACCU-CHEK XX SCH (02:00)
[2017-09-30 05:07] LABS: ABNORMAL IP MESSAGE 1; BASOPHILS % 0.4 % (0.0-2.0); EOSINOPHILS # 0.3 10^3/ul (0.0-0.5); EOSINOPHILS % 3.6 % (0.0-7.0); HEMATOCRIT 27.6 % (37.0-47.0); HEMOGLOBIN 8.2 g/dl (12.0-16.0); LYMPHOCYTES # 1.6 10^3/ul (0.8-2.9); LYMPHOCYTES % 18.8 % (15.0-51.0); MEAN CORPUSCULAR HEMOGLOBIN 22.3 pg (29.0-33.0); MEAN CORPUSCULAR HGB CONC 29.7 g/dl (32.0-37.0); MEAN PLATELET VOLUME 9.7 fl (7.4-10.4); MONOCYTE # 0.6 10^3/ul (0.3-0.9); MONOCYTES % 7.7 % (0.0-11.0); NEUTROPHIL # 5.7 10^3/ul (1.6-7.5); PLATELET COUNT 315 10^3/UL (140-415); RED BLOOD COUNT 3.68 10^6/ul (4.20-5.40); WHITE BLOOD COUNT 8.3 10^3/ul (4.8-10.8)
[2017-09-30 05:31] LABS: POSITIVE DIFF @See below
[2017-09-30 05:34] LABS: CALCIUM 8.2 mg/dl (8.4-10.2); CREATININE 0.8 mg/dl (0.44-1.00); POTASSIUM 3.9 mmol/L (3.5-5.1)
[2017-09-30 05:46] LABS: TROPONIN-I 15.2 ng/ml (0.00-0.12)
[2017-09-30] MEDS: FAMOTIDINE 20 MG INJ IV SCH (05:53)
[2017-09-30] MEDS: PIPER-TAZO 3.375 GM IV (PMX) 50 ML IVPB SCH ×3 (05:54→17:39)
[2017-09-30] MEDS ORDERED: INSULIN GLARGINE [LANtus] 3 ML PEN SC SCH (08:00)
[2017-09-30] MEDS: ASPIRIN (EC) 81 MG TAB PO SCH (08:10)
[2017-09-30] MEDS: PRASUGREL HYDROCHLORIDE 10 MG TABLET PO SCH (08:10)
[2017-09-30] MEDS: FERROUS SULFATE 60 MG/ML 5ML CUP PO SCH (08:10)
[2017-09-30] MEDS: INSULIN ASPART [NOVOLOG] 3 ML PEN SC SCH ×3 (08:21→17:54)
[2017-09-30] MEDS ORDERED: POTASSIUM CHLORIDE (SR) 20 MEQ TAB PO ONE (09:00)
--- NOTE | 2017-09-30 09:39 | CONS ---
Date/Time of Note Date/Time of Note DATE: 09/30/17 TIME: 09:36 Assessment/Plan Assessment/Plan Additional Assessment/Plan Acute inferior ST elevation [place] status post PCI to RCA with acute stent thrombosis status post repeat intervention Ventricular fibrillation/tachycardia status post defibrillation Coronary artery disease Preserved ejection fraction Mild to moderate aortic stenosis Status post extubation Diabetes Hypertension Dyslipidemia -Patient doing well, arterial and venous sheath was removed yesterday. Troponins are trending down. Plan to remove Cornelius today. Given acute stent thrombosis, patient was switched to Effient. Continue aspirin and Effient, statin therapy. Given borderline blood pressure, would hold off on beta- villa or NICCI inhibitor at the current time. Out of bed to chair and if tolerates encourage ambulation. 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 Would need intervention of the left system at a future time. If continues to remain stable, okay to transfer to [facility] Consultation Date/Type/Reason Admit Date/Time Sep 28, 2017 at 09:27 Type of Consultation: CV 24 HR Interval Summary Free Text/Dictation Patient denies shortness of breath, chest pain, dizziness or palpitations. Overall feeling much better Exam/Review of Systems Vital Signs Vitals Vital Signs Date Time Temp Pulse Resp B/P Pulse Ox O2 Delivery O2 Flow Rate FiO2 09/30/17 09:00 76 16 106/75 97 Room Air 09/30/17 08:00 98.7 09/29/17 22:38 21 09/29/17 13:13 3.0 Intake and Output 09/29/17 09/29/17 09/30/17 15:00 23:00 07:00 Intake Total 448.94 ml 270 ml 200 ml Output Total 800 ml 720 ml 285 ml Balance -351.06 ml -450 ml -85 ml Exam No apparent distress, eating breakfast Constitutional: alert, oriented (Times person place and time) Head: normocephalic Respiratory: other (Coarse breath sounds bilaterally, no wheezing) Cardiovascular: other, regular rate and rhythm (S1-S2 heard), systolic murmur Gastrointestinal: bowel sounds, non-tender, soft Extremities: edema (Trace), other (Right groin is soft, +2 femoral artery pulse , small hematoma the size of a nickel felt) Results Result Diagram: 09/30/17 0444 09/30/17 0444 Results 24 hrs Laboratory Tests Test 09/29/17 10:00 09/29/17 12:48 09/29/17 17:25 09/30/17 01:28 Blood Gas Specimen Source Blood arterial Arterial Blood Date Drawn 09/29/2017 10:10:02 AM Arterial Blood pH (Temp corrected) 7.466 H Arterial Blood pCO2 (Temp correct) 28.1 L Arterial Blood pO2 (Temp corrected) 193.5 H Arterial Blood HCO3 19.8 L Arterial Blood Base Excess -3.1 L Arterial Blood Oxygen Saturation 99.1 H Reji Test N/A Arterial Blood Gas Puncture Site A-Line Arterial Blood Carboxyhemoglobin 0.2 Arterial Blood Methemoglobin 0.2 Blood Gas A-a O2 Differential 59.4 H Oxyhemoglobin Percent 98.7 Total Hemoglobin 9.4 L Blood Gas Temperature 37.0 Blood Gas Actual Respiration Rate 11 Blood Gas Modality VENT - CPAP FiO2 40.0 Blood Gas Low PEEP Setting 5.0 Blood Gas Pressure Support 10 Blood Gas Notified Whom JLD Blood Gas Notified Time 09/29/2017 10:20:37 AM Bedside Glucose 189 153 139 Test 09/30/17 04:44 09/30/17 08:15 White Blood Count 8.3 Red Blood Count 3.68 L Hemoglobin 8.2 L Hematocrit 27.6 L Mean Corpuscular Volume 75.0 L Mean Corpuscular Hemoglobin 22.3 L Mean Corpuscular Hemoglobin Concent 29.7 L Red Cell Distribution Width Platelet Count 315 Mean Platelet Volume 9.7 Neutrophils % 69.0 Lymphocytes % 18.8 Monocytes % 7.7 Eosinophils % 3.6 Basophils % 0.4 Nucleated Red Blood Cells % 0.0 Neutrophils # 5.7 Lymphocytes # 1.6 Monocytes # 0.6 Eosinophils # 0.3 Basophils # 0.0 Nucleated Red Blood Cells # 0.0 Sodium Level 142 Potassium Level 3.9 Chloride Level 111 H Carbon Dioxide Level 24 Anion Gap 11 Blood Urea Nitrogen 10 Creatinine 0.80 Glucose Level 145 Calcium Level 8.2 L Magnesium Level 2.0 Troponin I 15.200 *H Bedside Glucose 151 Medications Medications Current Medications Aspirin (Halfprin) 81 mg DAILY PO Last administered on 09/30/17t 08:10; Admin Dose 81 MG; Start 09/29/17 at 09:00 Al Hydrox/Mg Hydrox/Simethicone (Mag-Al Plus) 30 ml Q4H PRN PO GASTROINTESTINAL UPSET; Start 09/28/17 at 09:00 Atorvastatin Calcium (Lipitor) 80 mg DAILY@21 PO Last administered on 20:15; Admin Dose 80 MG; Start 09/28/17 at 21:00 Ondansetron HCl (Zofran Inj) 4 mg Q6H PRN IV NAUSEA AND/OR VOMITING; Start 09/28/17 at 09:30 Acetaminophen (Tylenol Tab) 650 mg Q6H PRN PO PAIN LEVEL 1-3 OR FEVER; Start 09/28/17 at 09:30 Acetaminophen (Tylenol Supp) 650 mg Q6H PRN [place] PAIN LEVEL 1-3 OR FEVER; Start 09/28/17 at 09:30 Acetaminophen/ Hydrocodone Bitart ([place] (5/325)) 1 tab Q6H PRN PO MODERATE PAIN LEVEL 4-6; Start 09/28/17 at 09:30 Acetaminophen/ Hydrocodone Bitart ([place] (5/325)) 2 tab Q6H PRN PO SEVERE PAIN LEVEL 7-10; Start 09/28/17 at 09:30 Morphine Sulfate (morphine) 2 mg Q4H PRN IV SEVERE PAIN LEVEL 7-10; Start 09/28 at 09:30 Docusate Sodium (Colace) 100 mg Q12H PRN PO CONSTIPATION; Start 09/28/17 at 09: 30 Magnesium Hydroxide (Milk Of Mag) 30 ml DAILY PRN PO CONSTIPATION; Start at 09:30 Bisacodyl (Dulcolax Supp) 10 mg DAILY PRN [place] CONSTIPATION; Start 09/28/17 at 09 :30 Famotidine (Pepcid Iv) 20 mg DAILY@06 IV Last administered on 09/30/17 05:53 ; Admin Dose 20 MG; Start 09/29/17 at 06:00 Prasugrel 10 mg 10 mg DAILY PO Last administered on 09/30/17 08:10; Admin Dose 10 MG; Start 09/29/17 at 09:00 Norepinephrine 250 ml @ 1.875 mls/ hr TITRATE IV Last administered on 15:23; Admin Dose 7.5 MLS/HR; Start 09/28/17 at 15:00 Piperacillin Sod/ Tazobactam Sod (Zosyn 3.375gm/ 50 ml (Pmx)) 50 ml @ 100 mls/ hr Q6 IVPB Last administered on 09/30/17 05:54; Admin Dose 100 MLS/HR; Start 09/28/17 at 18:00 Ferrous Sulfate (Feosol Liquid Cup) 300 mg DAILY PO Last administered on 08:10; Admin Dose 300 MG; Start 09/29/17 at 10:00 Diagnostic Test (Pha) (Accu-Chek) 1 ea 02 XX ; Start 09/30/17 at 02:00 Insulin Glargine (Lantus) 15 unit DAILY@08 SC Last administered on 09/30/17 08:32; Admin Dose 15 UNIT; Start 09/30/17 at 08:00 Miscellaneous Information 1 ea NOTE XX ; Start 09/29/17 at 11:00 Glucose (Glutose) 15 gm Q15M PRN PO DECREASED GLUCOSE; Start 09/29/17 at 11:00 Glucose (Glutose) 22.5 gm Q15M PRN PO DECREASED GLUCOSE; Start 09/29/17 at 11: 00 Dextrose (D50w Syringe) 25 ml Q15M PRN IV DECREASED GLUCOSE; Start 09/29/17 at 11:00 Dextrose (D50w Syringe) 50 ml Q15M PRN IV DECREASED GLUCOSE; Start 09/29/17 at 11:00 Glucagon (Glucagen) 1 mg Q15M PRN IM DECREASED GLUCOSE; Start 09/29/17 at 11:00 Glucose (Glutose) 15 gm Q15M PRN BUCCAL DECREASED GLUCOSE; Start 09/29/17 at 11 :00 Mikal Garcia DO Sep 30, 2017 09:39
--- NOTE | 2017-09-30 10:17 | CONS ---
Date/Time of Note Date/Time of Note DATE: 09/30/17 TIME: 10:15 Consult Date/Type/Reason Admit Date/Time Sep 28, 2017 at 09:27 Type of Consultation: Pulmonary Subjective Patient safely extubated. Patient remains comfortable. No new events. Objective Vital Signs Date Time Temp Pulse Resp B/P Pulse Ox O2 Delivery O2 Flow Rate FiO2 09/30/17 09:00 76 16 106/75 97 Room Air 09/30/17 08:00 98.7 09/29/17 22:38 21 09/29/17 13:13 3.0 Intake and Output 09/29/17 09/29/17 09/30/17 15:00 23:00 07:00 Intake Total 448.94 ml 270 ml 200 ml Output Total 800 ml 720 ml 285 ml Balance -351.06 ml -450 ml -85 ml Exam PHYSICAL EXAMINATION: GENERAL: Well-nourished, well-developed lady, ambulating no respiratory distress. VITAL SIGNS: NECK: Supple, no JVD or lymphadenopathy. CARDIAC: S1, S2, no added sounds or murmurs. CHEST: Diminished air entry bilaterally. ABDOMEN: Soft, nontender. No guarding or rebound. EXTREMITIES: No cyanosis, clubbing, 1+ edema. NEUROLOGIC: Generalized weakness. Results/Medications Result Diagram: 09/30/17 0444 09/30/17 0444 Results 24 hrs Laboratory Tests Test 09/29/17 12:48 09/29/17 17:25 09/30/17 01:28 09/30/17 04:44 Bedside Glucose 189 153 139 White Blood Count 8.3 Red Blood Count 3.68 L Hemoglobin 8.2 L Hematocrit 27.6 L Mean Corpuscular Volume 75.0 L Mean Corpuscular Hemoglobin 22.3 L Mean Corpuscular Hemoglobin Concent 29.7 L Red Cell Distribution Width Platelet Count 315 Mean Platelet Volume 9.7 Neutrophils % 69.0 Lymphocytes % 18.8 Monocytes % 7.7 Eosinophils % 3.6 Basophils % 0.4 Nucleated Red Blood Cells % 0.0 Neutrophils # 5.7 Lymphocytes # 1.6 Monocytes # 0.6 Eosinophils # 0.3 Basophils # 0.0 Nucleated Red Blood Cells # 0.0 Sodium Level 142 Potassium Level 3.9 Chloride Level 111 H Carbon Dioxide Level 24 Anion Gap 11 Blood Urea Nitrogen 10 Creatinine 0.80 Glucose Level 145 Calcium Level 8.2 L Magnesium Level 2.0 Troponin I 15.200 *H Test 09/30/17 08:15 Bedside Glucose 151 Medications Current Medications Aspirin (Halfprin) 81 mg DAILY PO Last administered on 09/30/17 08:10; Admin Dose 81 MG; Start 09/29/17 at 09:00 Al Hydrox/Mg Hydrox/Simethicone (Mag-Al Plus) 30 ml Q4H PRN PO GASTROINTESTINAL UPSET; Start 09/28/17 at 09:00 Atorvastatin Calcium (Lipitor) 80 mg DAILY@21 PO Last administered on 20:15; Admin Dose 80 MG; Start 09/28/17 at 21:00 Ondansetron HCl (Zofran Inj) 4 mg Q6H PRN IV NAUSEA AND/OR VOMITING; Start 09/28/17 at 09:30 Acetaminophen (Tylenol Tab) 650 mg Q6H PRN PO PAIN LEVEL 1-3 OR FEVER; Start 09/28/17 at 09:30 Acetaminophen (Tylenol Supp) 650 mg Q6H PRN [place] PAIN LEVEL 1-3 OR FEVER; Start 09/28/17 at 09:30 Acetaminophen/ Hydrocodone Bitart ([place] (5/325)) 1 tab Q6H PRN PO MODERATE PAIN LEVEL 4-6; Start 09/28/17 at 09:30 Acetaminophen/ Hydrocodone Bitart ([place] (5/325)) 2 tab Q6H PRN PO SEVERE PAIN LEVEL 7-10; Start 09/28/17 at 09:30 Morphine Sulfate (morphine) 2 mg Q4H PRN IV SEVERE PAIN LEVEL 7-10; Start 09/28 at 09:30 Docusate Sodium (Colace) 100 mg Q12H PRN PO CONSTIPATION; Start 09/28/17 at 09: 30 Magnesium Hydroxide (Milk Of Mag) 30 ml DAILY PRN PO CONSTIPATION; Start at 09:30 Bisacodyl (Dulcolax Supp) 10 mg DAILY PRN [place] CONSTIPATION; Start 09/28/17 at 09 :30 Famotidine (Pepcid Iv) 20 mg DAILY@06 IV Last administered on 09/30/17 05:53 ; Admin Dose 20 MG; Start 09/29/17 at 06:00 Prasugrel 10 mg 10 mg DAILY PO Last administered on 11/10/17at 08:10; Admin Dose 10 MG; Start 09/29/17 at 09:00 Norepinephrine 250 ml @ 1.875 mls/ hr TITRATE IV Last administered on 15:23; Admin Dose 7.5 MLS/HR; Start 09/28/17 at 15:00 Piperacillin Sod/ Tazobactam Sod (Zosyn 3.375gm/ 50 ml (Pmx)) 50 ml @ 100 mls/ hr Q6 IVPB Last administered on 09/30/17 05:54; Admin Dose 100 MLS/HR; Start 09/28/17 at 18:00 Ferrous Sulfate (Feosol Liquid Cup) 300 mg DAILY PO Last administered on 08:10; Admin Dose 300 MG; Start 09/29/17 at 10:00 Diagnostic Test (Pha) (Accu-Chek) 1 ea 02 XX ; Start 09/30/17 at 02:00 Insulin Glargine (Lantus) 15 unit DAILY@08 SC Last administered on 09/30/17 08:32; Admin Dose 15 UNIT; Start 09/30/17 at 08:00 Miscellaneous Information 1 ea NOTE XX ; Start 09/29/17 at 11:00 Glucose (Glutose) 15 gm Q15M PRN PO DECREASED GLUCOSE; Start 09/29/17 at 11:00 Glucose (Glutose) 22.5 gm Q15M PRN PO DECREASED GLUCOSE; Start 09/29/17 at 11: 00 Dextrose (D50w Syringe) 25 ml Q15M PRN IV DECREASED GLUCOSE; Start 09/29/17 at 11:00 Dextrose (D50w Syringe) 50 ml Q15M PRN IV DECREASED GLUCOSE; Start 09/29/17 at 11:00 Glucagon (Glucagen) 1 mg Q15M PRN IM DECREASED GLUCOSE; Start 09/29/17 at 11:00 Glucose (Glutose) 15 gm Q15M PRN BUCCAL DECREASED GLUCOSE; Start 09/29/17 at 11 :00 Assessment/Plan Chief Complaint/Hosp Course IMPRESSION AND PLAN: 1. Acute myocardial infarction with 100% occlusion of right coronary artery requiring stent placement, complicated by in-stent thrombosis. Stent revision and replacement. 2. Traumatic endotracheal intubation with moderate bleeding from oropharynx, safely extubated. 3. Probable underlying obstructive sleep apnea. 4. Possible aspiration pneumonia given difficult endotracheal intubation. PLAN: 1. Ambulate incentive spirometry 2. Continue bronchodilators. 3. Continue cardiac recommendations 4. Continue hydration as tolerated. 5. Continue Zosyn and de-escalate soon. Stable for transfer to [facility]. Problems: CHRISTY SUN MD, [facility] Sep 30, 2017 10:17
--- NOTE | 2017-09-30 15:39 | DS ---
Date/Time of Note Date/Time of Note DATE: 09/30/17 TIME: 15:29 Discharge Summary Admission/Discharge Info Admit Date/Time Sep 28, 2017 at 09:27 Discharge Date/Time Patient Condition: Stable Consults Dr Garcia; Dr Mcmillan Procedures Angiogram with PCI twice. Echo. Chest x-rays. Hx of Present Illness This is a 47-year-old female morbidly obese was brought to [facility] due to reports of chest pain. Patient reportedly has no significant past medical history. History obtained from patient's significant other as patient intubated at this time. According to report patient was in her normal state of health however this morning started to complain of abdominal pain that radiated to her back. She had associated nausea and vomiting. She did tell her significant other to call ambulance and she was brought to [facility] where she was found to have inferior myocardial infarction. She did have consultation by brine tank operator and did undergo left heart catheterization with placement of bare-metal stent 2 to RCA. Of note during procedure she was noted to have episodes of ventricular fibrillation and was shocked. She did respond well and was brought to the ICU. While in ICU reportedly she was more alert and oriented however did fall back into ventricular fibrillation. She did have ACLS provided and was intubated. She is again being transferred to lab systems analyst at present for further intervention. On labs she was noted to have some leukocytosis with white count is high 17.6. She was noted with hypochromic microcytic anemia as well. Lactic acid 1.6 and troponin I is 2.9. She was also noted with an elevated blood glucose as well as elevated lipid profile. Chest x-ray showing no evidence of acute cardiopulmonary disease. We will evaluate her for the aformentiond issues. Hospital Course 47-year-old female admitted with acute inferior wall ST elevated AR. Underwent cardiac catheterization with 2 bare-metal stents. In lab systems analyst had V. fib issues requiring medications and shock. She was intubated for airway protection. While continued care on the floor, patient was noted to have issues requiring repeat catheter cardiac catheterization. Patient was found to have in-stent thrombosis. The RCA was restented. Patient was transferred ICU and presently extubated, stable and fit for discharge. Transferring to [facility]. Anticoagulations was changed to Effient as per cardiology recommendations. Already on aspirin and statin. No beta villa/80s due to borderline blood pressure. Non-smoker. In terms of coronary artery disease. Patient is noted to have less system disease. 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 She will need to be reevaluated for left heart cath versus CABG at [facility]. Anemia stable, follow. Low MCV. Likely iron deficient Aortic stenosis seen mild to mod. New diagnosis diabetes. A1c 7.2 New diagnosis dyslipidemia/low HDL Likely LESLI. Likely hypothyroidism: New diagnosis started treatment Metabolic syndrome Traumatic intubation Potentially aspiration pneumonia. Patient is on day 2 of Zosyn. Probably 1 more day of Zosyn and then she could finished this therapy. From cardiology Acute inferior ST elevation AR status post PCI to RCA with acute stent thrombosis status post repeat intervention Ventricular fibrillation/tachycardia status post defibrillation Coronary artery disease Preserved ejection fraction Mild to moderate aortic stenosis Status post extubation Diabetes Hypertension Dyslipidemia -Patient doing well, arterial and venous sheath was removed yesterday. Troponins are trending down. Plan to remove Cornelius today. Given acute stent thrombosis, patient was switched to Effient. Continue aspirin and Effient, statin therapy. Given borderline blood pressure, would hold off on beta- villa or NICCI inhibitor at the current time. Out of bed to chair and if tolerates encourage ambulation. 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 Would need intervention of the left system at a future time. If continues to remain stable, okay to transfer to [facility]. ED echo: Conclusions 1. Normal left ventricular systolic function. Normal left ventricular cavity size. Mild concentric left ventricular hypertrophy. Ejection fraction is visually estimated at 60 %. Abnormal Diastolic Function. 2. Normal right ventricular size. Normal right ventricular systolic function. 3. The left atrium is normal in size. 4. The right atrium is normal in size. 5. Mild to moderate aortic stenosis. No aortic regurgitation. 6. Estimated peak PA systolic pressure 26 mmHg. There is mild tricuspid regurgitation. 7. Trace mitral regurgitation. 8. Normal pericardium with no significant pericardial effusion. Electronically Signed By: Mikal Garcia 28-Sep-2017 14:59:12 -0800 PICC cath Operative Report Procedure Date: Sep 28, [address] elevation myocardial infarction Postoperative Diagnosis Obstructive coronary artery disease Operation/Procedure Performed Left heart catheterization Right and left coronary angiogram Interpretation and supervision of right and left coronary angiogram Left ventricular pressure measurements PCI of the mid RCA with the placement of a 2.5 x 20 mm rebel bare-metal stent and then proximal to that in overlapping fashion 2.75 x 12 mm rebel bare-metal stent Right radial artery and right femoral artery approach ACLS protocol with defibrillation and CPR Conscious sedation Estimated Blood Loss: minimal Transfusion none Specimen None Grafts/Implants Bare-metal stents as mentioned above Complications none Pt Condition Post Procedure: guarded Procedure Description Findings Hemodynamics Aortic pressure 147/87 Left ventricular pressure 156/11 with EDP of 24 Coronary anatomy Left main is a large caliber vessel with no significant disease Circumflex is a medium caliber vessel, in the mid vessel there is a 30% stenosis. OM 3 is a small caliber vessel with ostial 60% stenosis, OM 4 is a medium caliber vessel with ostial 50% stenosis. LAD is a medium to large caliber vessel with a proximal to mid 80% stenosis, at the bifurcation of the second medium caliber diagonal there is an 80% stenosis in the LAD and 90% ostial stenosis in the second diagonal. RCA is a medium caliber vessel and is dominant with ostial and proximal 30% stenosis and mid 100% occlusion There appears to be multiple small fistulas going from either the left main or the LAD emptying into either the pulmonary artery or aorta Description of procedure Patient brought to the [facility] Supervisor emergency secondary to ST elevation AR. Initially right radial access was obtained using ultrasound guidance. A 5/6 [place] sheath was used the right radial artery. A 5 [place] JL 3.5 diagnostic catheter was used to engage the left main and angiogram was performed. Number next switching out for a JR4 guide catheter and patient with severe spasming in the mid right arm inhibiting advancement of her catheter. At that time, patient with ventricular fibrillation and loss of consciousness. Patient was shocked at 200 J and CPR was performed. Patient came to within a few seconds. IV amiodarone bolus was given. We next which the right femoral artery access using micropuncture initially and then a 6 [place] sheath was placed. 6 [place] JR4 guide was used to engage the RCA which demonstrated 100% mid occlusion. Angiomax was used for anticoagulation. We next crossed the lesion with a run through wire and flow was regained. We next performed balloon angioplasty. Patient once again ventricular fibrillation requiring 2 defibrillations with 200 J. Patient regained consciousness within a few seconds. Patient was given IV lidocaine. 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 Furthermore, given the LAD stenosis and location, coronary artery bypass grafting would be the preferred option. Given the above, and with angioplasty by itself, there was recurrent recoil of the RCA, we opted to proceed with bare-metal stenting of the RCA. A 2.5 x 20 mm bare-metal stent was used in the mid to distal segment and then proximal to that in overlapping fashion, a 2.75 x 12 mm bare-metal stent was used. The stents were post dilated with the stent delivery system balloon. There was an excellent angiographic result with TAVIA-3 flow with no evidence of dissection. Patient was hemodynamically stable by and the procedure , chest pain-free, fully coherent and following commands. We next crossed into the left ventricle and pressure measurements were obtained as well as pullback. All catheters and wires removed. The left femoral artery sheath was sutured in place with plans of removal once appropriate. Recommendations Dual antiplatelet therapy for minimum of 1 month, aggressive risk factor management. Findings and plan of care discussed with the patient. Mikal Garcia DO Sep 28, 2017 09:06 Operative Report Procedure Date: Sep 28, 2017 Preoperative Diagnosis Myocardial infarction Postoperative Diagnosis Myocardial infarction Acute stent thrombosis Operation/Procedure Performed Left heart catheterization Right and left coronary angiogram Interpretation and supervision of right left coronary angiogram PCI of the RCA with manual thrombectomy, intravascular ultrasound, balloon angioplasty, stenting the proximal segment of the previous stent with a rebel bare-metal 3 x 12 mm stent, distal aspect of the previous stents with a Rebel 2.5 x 12 mm bare-metal stent Right femoral artery access Right femoral vein access [On further review of intravascular ultrasound, there does not appear to be any disruption in the intima which confirms likely thrombus in that region, not dissection]. Home Meds Reported Medications Ferrous Sulfate* (Ferrous Sulfate*) 325 Mg Tabec, 325 MG PO DAILY, TAB 09/28/17 Primary Care Provider Care Physician No Primary Time spent on discharge: > 30 minutes Pending Labs Laboratory Tests Test 09/29/17 17:25 09/30/17 01:28 09/30/17 04:44 09/30/17 08:15 Bedside Glucose 153mg/dL (70-220) 139mg/dL (70-220) 151mg/dL (70-220) White Blood Count 8.310^3/ul (4.8-10.8) Red Blood Count 3.6810^6/ul (4.20-5.40) Hemoglobin 8.2g/dl (12.0-16.0) Hematocrit 27.6% (37.0-47.0) Mean Corpuscular Volume 75.0fl (82.0-101.0) Mean Corpuscular Hemoglobin 22.3pg (29.0-33.0) Mean Corpuscular Hemoglobin Concent 29.7g/dl (32.0-37.0) Red Cell Distribution Width % (11.5-14.5) Platelet Count 51293^3/UL (140-415) Mean Platelet Volume 9.7fl (7.4-10.4) Neutrophils % 69.0% (39.0-77.0) Lymphocytes % 18.8% (15.0-51.0) Monocytes % 7.7% (0.0-11.0) Eosinophils % 3.6% (0.0-7.0) Basophils % 0.4% (0.0-2.0) Nucleated Red Blood Cells % 0.0/100WBC (0.0-0.0) Neutrophils # 5.710^3/ul (1.6-7.5) Lymphocytes # 1.610^3/ul (0.8-2.9) Monocytes # 0.610^3/ul (0.3-0.9) Eosinophils # 0.310^3/ul (0.0-0.5) Basophils # 0.010^3/ul (0.0-0.1) Nucleated Red Blood Cells # 0.010^3/ul (0.0-0.0) Sodium Level 142mmol/L (135-144) Potassium Level 3.9mmol/L (3.5-5.1) Chloride Level 111mmol/L (97-110) Carbon Dioxide Level 24mmol/L (21-31) Anion Gap 11 (8-16) Blood Urea Nitrogen 10mg/dl (7-20) Creatinine 0.80mg/dl (0.44-1.00) Glucose Level 145mg/dl (70-220) Calcium Level 8.2mg/dl (8.4-10.2) Magnesium Level 2.0mg/dl (1.7-2.5) Troponin I 15.200ng/ml (0.00-0.12) Test 09/30/17 12:08 Bedside Glucose 165mg/dL (70-220) DARA PEREYRA MD Sep 30, 2017 15:39
--- NOTE | 2017-09-30 15:40 | PDOCDIS ---
Discharge Instructions DIAGNOSIS Discharge Diagnosis NC CONDITION Patient Condition: Stable HOME CARE INSTRUCTIONS: Special Diet: 1800 KCAL FOLLOW UP/APPOINTMENTS Follow-up Plan DARA Rome MD Sep 30, 2017 15:40
[2017-09-30] MEDS ORDERED: ACET325T40 PO (15:41)
[2017-09-30] MEDS: ATORVASTATIN 80 MG TAB PO SCH (20:20)
[2017-10-01] MEDS ORDERED: LEVOTHYROXINE 25 MCG TAB PO SCH (06:00)
[2017-10-01] MEDS ORDERED: PANTOPRAZOLE (EC) 40 MG TAB PO SCH (06:00)
== END 2017-09-30 21:10 | disposition short-term general hospital (02) | DRG 248 ==
LOC: E/R 06:48 → SDS 07:07 → CCL 07:07 → ICU 09:27 → UNDOADMIN 09:27 → ICU 12:14
PROVIDERS: ADMIT Internal Medicine; ATTEND Internal Medicine
PROC: 02703EZ Dilation of Coronary Artery, One Artery with Two Intraluminal Devices, Percutaneous Approach (ICD-10-PCS; 2017-09-28)
PROC: 02C03ZZ Extirpation of Matter from Coronary Artery, One Artery, Percutaneous Approach (ICD-10-PCS; 2017-09-28)
PROC: 4A023N7 Measurement of Cardiac Sampling and Pressure, Left Heart, Percutaneous Approach (ICD-10-PCS; 2017-09-28)
PROC: B211YZZ Fluoroscopy of Multiple Coronary Arteries using Other Contrast (ICD-10-PCS; 2017-09-28)
PROC: 5A2204Z Restoration of Cardiac Rhythm, Single (ICD-10-PCS; 2017-09-28)
PROC: 0BH17EZ Insertion of Endotracheal Airway into Trachea, Via Natural or Artificial Opening (ICD-10-PCS; 2017-09-28)
PROC: 4A023N7 Measurement of Cardiac Sampling and Pressure, Left Heart, Percutaneous Approach (ICD-10-PCS; 2017-09-28)
PROC: B211YZZ Fluoroscopy of Multiple Coronary Arteries using Other Contrast (ICD-10-PCS; 2017-09-28)
PROC: B240ZZ3 Ultrasonography of Single Coronary Artery, Intravascular (ICD-10-PCS; 2017-09-28)
PROC: 02703EZ Dilation of Coronary Artery, One Artery with Two Intraluminal Devices, Percutaneous Approach (ICD-10-PCS; principal; 2017-09-28 07:30)
PROC: 5A1935Z Respiratory Ventilation, Less than 24 Consecutive Hours (ICD-10-PCS; 2017-09-28 07:30)
DX: I21.19 ST elevation (STEMI) myocardial infarction involving other coronary artery of inferior wall (principal); I49.01 Ventricular fibrillation; J69.0 Pneumonitis due to inhalation of food and vomit; I25.82 Chronic total occlusion of coronary artery; E88.81 Metabolic syndrome and other insulin resistance; Z68.41 Body mass index [BMI] 40.0-44.9, adult; E11.65 Type 2 diabetes mellitus with hyperglycemia; I46.2 Cardiac arrest due to underlying cardiac condition; I97.790 Other intraoperative cardiac functional disturbances during cardiac surgery; T82.867A Thrombosis due to cardiac prosthetic devices, implants and grafts, initial encounter; E66.01 Morbid (severe) obesity due to excess calories; I25.10 Atherosclerotic heart disease of native coronary artery without angina pectoris; I10 Essential (primary) hypertension; D50.9 Iron deficiency anemia, unspecified; E78.5 Hyperlipidemia, unspecified; E03.9 Hypothyroidism, unspecified; G47.33 Obstructive sleep apnea (adult) (pediatric); T88.4XXA Failed or difficult intubation, initial encounter; Y84.8 Other medical procedures as the cause of abnormal reaction of the patient, or of later complication, without mention of misadventure at the time of the procedure
CPT/HCPCS: 31500; 36600; 71010; 75946; 80048; 80053; 80061; 82550; 82553; 82803; 82962; 83036; 83605; 83690; 83735; 83880; 84100; 84436; 84443; 84479; 84484; 85025; 85610; 85730; 86703; 86706; 86803; 87081; 87340; 92941; 92950; 93005; 93306; 94003; 96374; C1725; C1769; C1876; C1887; C1894; C9113; J0282; J0461; J0583; J1327; J1644; J1815; J2001; J2250; J2543; J3010; J3475; J7060; Q9967